=== PATIENT | female | born 1970 | race Caucasian/White ===

== ENCOUNTER 2024-11-03 20:59 | Inpatient (IN) ==
--- NOTE | 2024-11-03 21:13 | Emergency Department Note ---
Impression & Plan Dizziness, Anterior cervical adenopathy, Acute streptococcal pharyngitis, Leukocytosis, Prolonged QT interval, Hypomagnesemia ED Provider Note NAME: JODI PADRON AGE: 54 SEX: F : 1970 ARRIVES VIA: Walk-In INFORMANT: Patient, ED PROVIDER(S): Tommie Jiménez MD CHIEF COMPLAINT: Near syncope MEDICAL DECISION MAKING: Patient presents with the above. IV was established and blood work was obtained. Patient ordered 1500 of IV fluids along with IV Toradol 10 mg. BioFire and strep test obtained along with the EKG and chest x-ray. Upon reassessment patient had mild improvement in symptoms. Patient strep positive. The patient white count of 35,000. Given the patient's significant white blood cell count to believe the patient would benefit from admission for further evaluation. Mild transaminitis with an ALT of 91 and magnesium is low at 1.1. The patient was ordered 2 g over an hour for replacement of magnesium. Hyponatremia noted at 133. Patient's BioFire was positive for coronavirus 2 29E. The patient's chest x-ray by my read does not show obvious pneumonia or pneumothorax. Patient was complaining of muscle spasms and she was ordered for home Skelaxin. I did speak with the on-call hospitalist service Dr. Victor the patient was admitted to medicine service. Discussion w/ other healthcare providers: Dr. Victor inpatient medicine service Prior /Outside records reviewed: none Differential diagnosis: Pharyngitis, tonsillitis, mononucleosis, CAREER SERVICES DIRECTOR, RPA, otitis, pneumonia, sinusitis, lymphadenitis, Fili's, odontogenic vasovagal event, dehydration, infection, hypoglycemia, electrolyte abnormalities, arrhythmia, pulmonary embolism, seizure among others were considered. Diagnostics, as interpreted by me: ECG: Sinus tachycardia, rate of 136, normal VT and QRS, QTc long, normal axis. No ST elevations. Cardiac monitoring: An order was placed for continuous cardiac monitoring. The monitor shows a rate of 136 with tachycardic and regular rhythm. Patient was placed on pulse oximetry Medical decision rules: None Imaging studies: I informally interpreted the patient's chest x-ray does not show obvious pneumonia or pneumothorax with formal report to follow. HPI: Patient presents due to concern for dizziness lightheadedness with the began earlier today. The patient states that she has not felt that well for about the last month seem to worsen just in the last 1 to 2 days. The patient reports that she showed up for work today after having a headache and fever at home with a Tmax of 101 after taking 2 Tylenol. The patient states that during initial huddle she thought as though she was going to vagal and pass out so she did go and sit down for a moment and then she went back to take report for patient care when she had a recurrence of symptoms. The patient states that she sat down and checked her blood pressure and was getting 60s over 40s had somebody else check her blood pressure which was in the 80s. The patient thus presented here for further evaluation treatment. Patient reports that she has had some sore throat and feeling as though her lymph nodes in her anterior neck are swollen. Patient does work as a nurse here in the hospital. No recent travel. Patient denies any abdominal pain. She did have 1 episode of vomiting after her presyncopal symptoms but did never actually pass out. PAST MEDICAL HISTORY: See Below PAST SURGICAL HISTORY: See Below SOCIAL HISTORY: See Below HOME MEDICATIONS: See Below ALLERGIES: See Below VITALS: See Below PHYSICAL EXAMINATION: GENERAL: NAD, non-toxic. EYE EXAM: Normal conjunctiva. PERRL, no anisocoria and EOM's grossly intact w/o pain. OROPHARYNX: Moist mucus membranes, grossly normal dentition. NECK: Trachea midline, no stridor. Supple, no nuchal rigidity, no adenopathy, non-tender. No signs of meningismus. FROM of the neck with good chin to chest and neck extension. LUNGS: Clear to auscultation. Normal chest wall mechanics. HEART: NSR, no MRG. ABDOMEN: Abdomen soft, non-tender, no masses, no rebound or guarding. BACK: No CVA TTP. SKIN: No rashes and no bruising. UPPER EXTREMITIES: Upper extremities are grossly normal. LOWER EXTREMITIES: Grossly normal, no edema. NEURO EXAM: A&O x3, cranial nerves II-XII grossly intact, normal speech, moves all 4 extremities. Past Med/Surg History Problem List (Updated 11/03/24 @ 23:35 by Tommie Jiménez MD) Hypomagnesemia (Acute) Prolonged QT interval (Acute) Leukocytosis (Acute) Acute streptococcal pharyngitis (Acute) Anterior cervical adenopathy (Acute) Dizziness (Acute) Social History Smoking Status: Never smoker Preferred Language: Puerto Rican Feels Safe at Home: Yes Allergies Allergies Allergy/AdvReac Type Severity Reaction Status Date / Time No Known Allergies Allergy Verified 11/03/24 22:04 Home Meds Home Medications Medication Instructions Recorded Confirmed fluticasone propionate 50 2 spray intranasal DAILY PRN 11/03/24 11/03/24 mcg/actuation nasal Congestion spray,suspension (Flonase Allergy Relief) loratadine 10 mg tablet (Claritin) 10 mg PO QPM 11/03/24 11/03/24 metaxalone 800 mg tablet 800 mg PO TID PRN Muscle Spasm 11/03/24 11/03/24 montelukast 10 mg tablet 10 mg PO PM 11/03/24 11/03/24 omeprazole 20 mg tablet,delayed 20 mg PO QPM 11/03/24 11/03/24 release Results & Data (ED) Vital Signs Vital Signs - 24 hr 11/03/24 21:03 11/03/24 21:38 11/03/24 22:28 Temperature 36.5 C Temperature Source Temporal Artery Scan Pulse Rate 136 H Pulse Rate [Apical] 122 H Pulse Rhythm [Apical] Regular Respiratory Rate 18 20 Respiratory Effort / Characteristics Non-Labored Spontaneous Respiratory Depth Normal Normal Respiratory Pattern Regular Blood Pressure 125/85 Blood Pressure [Left Arm] 127/78 Blood Pressure Mean 98 Blood Pressure Mean [Left Arm] 94 Blood Pressure Position [Left Arm] Semi-fowlers Pulse Oximetry 96 97 97 Oxygen Delivery Method Room Air Room Air Sepsis Recent Fever Within 48 Hours No Sepsis New/Unexplained Change in Mental Status No Sepsis Action Taken by Nursing No Action Required Laboratory Data 11/03/24 21:42 11/03/24 21:42 Lab Results 11/03/24 11/03/24 Range/Units 21:08 21:42 WBC 35.16 H* (4.8-10.8) K/ul RBC 4.49 (4.20-5.40) M/uL Hgb 13.7 (12.0-16.0) g/dl Hct 40.2 (37.0-47.0) % MCV 89.5 (80.0-100.0) fL MCH 30.5 (25.0-34.0) pg MCHC 34.1 (32.0-36.0) g/dL RDW Std Deviation 45.1 (36.4-46.3) fL RDW Coeff of Jameel 13.9 (11.5-14.5) % Plt Count 307 (130-400) K/uL MPV 9.6 (9.4-12.4) fL Immature Gran % (Auto) 7.0 % Neut % (Auto) 82.8 % Lymph % (Auto) 3.0 % [place] % (Auto) 7.0 % Eos % (Auto) 0.1 % Baso % (Auto) 0.1 % Neut # (Auto) 29.10 H (1.40-6.50) K/uL Lymph # (Auto) 1.07 L (1.20-3.40) K/uL [place] # (Auto) 2.46 H (0.11-0.59) K/uL Eos # (Auto) 0.03 (0.00-0.50) K/uL Baso # (Auto) 0.05 (0.00-0.20) K/uL Immature Gran # (Auto) 2.45 H (0.01-0.20) K/uL Toxic Vacuolation 1+ Dohle Bodies 1+ PT 11.9 (9.0-12.0) Seconds INR 1.1 (0.9-1.1) APTT 30 (21-31) Seconds PTT Ratio 1.1 Sodium 133 L (136-145) mmol/L Potassium 3.6 (3.5-5.1) mmol/L Chloride 97 L (98-107) mmol/L Carbon Dioxide 23 (21-32) mmol/L Anion Gap 13 H (3-11) BUN 8 (6-23) mg/dl Creatinine 1.15 (0.6-1.2) mg/dl Est Cr Clr Drug Dosing 48.1 ml/min eGFR 56.96 BUN/Creatinine Ratio 7.0 L (10-20) Glucose 114 H (70-99(Fasting)) mg/dl Calcium 9.6 (8.6-10.3) mg/dl Magnesium 1.1 L (1.7-2.4) mg/dl Total Bilirubin 1.3 H (0.2-1.0) mg/dl AST 39 (13-39) U/L ALT 91 H (7-52) U/L Alkaline Phosphatase 179 H (34-104) U/L Troponin I High Sens 3.1 (0-14) pg/ml Total Protein 7.9 (6.0-8.3) gm/dl Albumin 4.2 (3.4-5.0) gm/dl Globulin 3.7 (2.5-4.0) gm/dl Albumin/Globulin Ratio 1.1 (0.9-2) Adenovirus (PCR) Not Detected (NotDetected) B. pertussis DNA (PCR) Not Detected (NotDetected) B.parapertussis DNA PCR Not Detected (NotDetected) C. pneumoniae DNA (PCR) Not Detected (NotDetected) Coronavirus OC43 (PCR) Not Detected (NotDetected) Coronavirus HKU1 (PCR) Not Detected (NotDetected) Coronavirus 229E (PCR) DETECTED A (NotDetected) SARS-CoV-2 (PCR) Not Detected (NotDetected) Coronavirus NL63 (PCR) Not Detected (NotDetected) Human Metapneumovir PCR Not Detected (NotDetected) Influenza Type A (PCR) Not Detected (NotDetected) Influenza Type B (PCR) Not Detected (NotDetected) M. pneumoniae (PCR) Not Detected (NotDetected) Parainfluenza 1 (PCR) Not Detected (NotDetected) Parainfluenza 2 (PCR) Not Detected (NotDetected) Parainfluenza 3 (PCR) Not Detected (NotDetected) Parainfluenza 4 (PCR) Not Detected (NotDetected) RSV (PCR) Not Detected (NotDetected) Entero/Rhino (PCR) Not Detected (NotDetected) Group A Strep (PCR) DETECTED A (NotDetected) Administered Medications Discontinued Medications Sodium Chloride (Nss) 1,000 mls @ 999 mls/hr IV .Q1H1M ONE Stop: 11/03/24 22:19 Last Infusion: 11/03/24 22:36 Dose: Infused Documented By: Admin: 11/03/24 21:35 Dose: 999 mls/hr Documented By: JESS Sodium Chloride (Nss) 500 mls @ 999 mls/hr IV .Q31M ONE Stop: 11/03/24 21:49 Last Admin: 11/03/24 22:31 Dose: 999 mls/hr Documented By: JESS Ampicillin Sodium/Sulbactam Sodium (Unasyn) 3,000 mg in 100 mls @ 200 mls/hr IV NOW STA Stop: 11/03/24 22:54 Last Admin: 11/03/24 22:55 Dose: 200 mls/hr Documented By: DACIA Ketorolac Tromethamine (Ketorolac Tromethamine 15 Mg/Ml Vial) 10 mg IV NOW ONE Stop: 11/03/24 21:20 Last Admin: 11/03/24 21:47 Dose: 10 mg Documented By: JESS Metaxalone (Metaxalone 800 Mg Tablet) 400 mg PO NOW STA Stop: 11/03/24 22:53 Last Admin: 11/03/24 23:05 Dose: 400 mg Documented By: DACIA Discharge Plan Visit Data Chief Complaint: Syncope (Near Syncope) Stated Complaint: NEAR SYNCOPE,SOB,VOMITING ED Provider: Tommie Jiménez Discharge Problem: Dizziness, Anterior cervical adenopathy, Acute streptococcal pharyngitis, Leukocytosis, Prolonged QT interval, Hypomagnesemia Forms Stand Alone Forms: [place] [employer] Prescriptions Prescriptions: No Action montelukast 10 mg Tablet 10 mg PO PM fluticasone propionate [Flonase Allergy Relief] 50 mcg/actuation [place],Suspension 2 spray INTRANASAL DAILY PRN (Reason: Congestion) Rx Instructions: administer into each nostril loratadine [Claritin] 10 mg Tablet 10 mg PO QPM metaxalone 800 mg Tablet 800 mg PO TID PRN (Reason: Muscle Spasm) omeprazole 20 mg Tablet,Delayed Release (Dr/Ec) 20 mg PO QPM Referrals Referrals: PCP,NO [Physician] - Discharge Problem: Leukocytosis Qualifiers: Leukocytosis type: unspecified Qualified Code(s): D72.829 - Elevated white blood cell count, unspecified
[2024-11-03] MEDS: SODIUM CHLORIDE 0.9% 1,000 ML IV ONE ×2 (21:35→23:38)
[2024-11-03] MEDS: KETOROLAC TROMETHAMINE 15 MG/ML VIAL IV ONE (21:47)
[2024-11-03 22:11] LABS: Adenovirus PCR Not Detected (NotDetected); Bordetella parapertussis PCR Not Detected (NotDetected); Bordetella pertussis PCR Not Detected (NotDetected); Chlamydia pneumoniae PCR Not Detected (NotDetected); Coronavirus 229E PCR DETECTED (NotDetected); Coronavirus CoV-2 (COVID19)PCR Not Detected (NotDetected); Coronavirus HKU1 PCR Not Detected (NotDetected); Coronavirus NL63 PCR Not Detected (NotDetected); Coronavirus OC43PCR Not Detected (NotDetected); Human Metapneumovirus PCR Not Detected (NotDetected); Influenza A PCR Not Detected (NotDetected); Influenza B PCR Not Detected (NotDetected); Mycoplasma pneumoniae PCR Not Detected (NotDetected); Parainfluenza Virus 1 PCR Not Detected (NotDetected); Parainfluenza Virus 2 PCR Not Detected (NotDetected); Parainfluenza Virus 3 PCR Not Detected (NotDetected); Parainfluenza Virus 4 PCR Not Detected (NotDetected); Respiratory Syncytial VirusPCR Not Detected (NotDetected); Rhinovirus/Enterovirus PCR Not Detected (NotDetected)
[2024-11-03 22:13] LABS: Albumin Globulin Ratio 1.1 (0.9-2); Albumin Level 4.2 gm/dl (3.4-5.0); Bilirubin,Total 1.3 mg/dl (0.2-1.0); Calcium 9.6 mg/dl (8.6-10.3); Creatinine Clr Calc Pharmacy 48.1 ml/min; Globulin 3.7 gm/dl (2.5-4.0); Magnesium 1.1 mg/dl (1.7-2.4); Potassium 3.6 mmol/L (3.5-5.1); Total Protein 7.9 gm/dl (6.0-8.3)
[2024-11-03 22:20] LABS: Basophils # (auto) 0.05 K/uL (0.00-0.20); Basophils % (auto) 0.1 %; Dohle Bodies 1+; Eosinophils # (auto) 0.03 K/uL (0.00-0.50); Eosinophils % (auto) 0.1 %; Hematocrit (blood only) 40.2 % (37.0-47.0); Hemoglobin 13.7 g/dl (12.0-16.0); Immature Granulocytes # (auto) 2.45 K/uL (0.01-0.20); Lymphocytes # (auto) 1.07 K/uL (1.20-3.40); Mean Corpuscular Hemoglobin 30.5 pg (25.0-34.0); Mean Corpuscular Hgb Conc 34.1 g/dL (32.0-36.0); Mean Corpuscular Volume 89.5 fL (80.0-100.0); Mean Platelet Volume 9.6 fL (9.4-12.4); Monocytes # (auto) 2.46 K/uL (0.11-0.59); Neutrophils % (auto) 82.8 %; Platelet Count 307 K/uL (130-400); RDW Coefficient of Variation 13.9 % (11.5-14.5); RDW Standard Deviation 45.1 fL (36.4-46.3); Red Blood Count 4.49 M/uL (4.20-5.40); Toxic Vacuolation 1+; Troponin I High Sensitivity 3.1 pg/ml (0-14); White Blood Count 35.16 K/ul (4.8-10.8)
[2024-11-03] MEDS: SODIUM CHLORIDE 0.9% 500 ML IV ONE (22:31)
[2024-11-03 22:44] LABS: INR 1.1 (0.9-1.1); Partial Thromboplastin Ratio 1.1; Partial Thromboplastin Time 30 Seconds (21-31); Prothrombin Time 11.9 Seconds (9.0-12.0)
[2024-11-03] MEDS: AMPICILLIN/SULBACTAM SOD 3,000 MG/100 ML BAG IV STA (22:55)
[2024-11-03] MEDS: METAXALONE 800 MG TABLET PO STA (23:05)
[2024-11-03] MEDS: MAGNESIUM SULFATE / D5W 1 GM/100 ML BAG IV SCH (23:39)
--- NOTE | 2024-11-04 00:02 | History & Physical Report ---
Date of Service November 03, 2024 Assessment & Plan (1) Sepsis: Plan: 54-year-old female with past medical history significant for allergies, GERD presents with fever, sore throat and runny nose and near syncope. Patient states she has cough for last month and attributes it from allergies. Since last Friday she started having sore throat. And since Friday she was having fevers. Having bodyaches. She is taking Tylenol and ibuprofen at home. 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 It happened again. And when she stood up and checked her blood pressure systolic blood pressure was in 60s. She checked her blood pressures sitting and systolic blood pressure was in 80s. Patient has had a history of vasovagal episodes. She came to the ER. And in ER she was tachycardic. Blood pressure is okay. Currently afebrile. WBC 35. Magnesium 1.1. Total bili 1.3. ALT 91. Alkaline phos 117. Respiratory bio fire came back positive for coronavirus 229 E and also was group B strep positive. Says when she had episode of near syncope she felt tunnel vision. Has some fullness in the ears. Has runny nose. Denies any chest pain. Feels soreness in the lungs. Denies shortness of breath. Had 3 episodes of vomiting since today evening. Denies abdominal pain. No diarrhea. Micturating okay. Denies any rash. Sepsis Meets criteria for sepsis with tachycardia, pneumonia, leukocytosis Aggressive fluids Respiratory panel positive for coronavirus 229 E and group A strep Received ampicillin in the ER Chest x-ray shows cavitary lesion in the left midline. Possible pneumonia versus mass lesions Will get CT chest Will place empirically on Zosyn and doxycycline Consult pulmonary in a.m. for further recommendation Close monitoring telemetry Near syncope Possible from sepsis and tachycardia Troponin okay Will follow repeat EKG and telemetry will follow echo Prolonged QTc Avoid QT prolonging drugs Replacing magnesium Follow repeat EKG Hypomagnesia Magnesium 1.1 Replacing Follow repeat labs Leukocytosis WBC 35 Possibly from above Will follow repeat labs Mild transaminitis Total bilirubin 1.3 AST 39 ALT 91 Alkaline phos is 179 Will follow-up repeat LFTs and if worsening will hold Tylenol GERD Continue omeprazole DVT prophylaxis Lovenox Disposition Telemetry Full code. History of Present Illness Chief Complaint: Sepsis Primary Care Provider: NATHALY LORRAINE 54-year-old female with past medical history significant for allergies, GERD presents with fever, sore throat and runny nose and near syncope. Patient states she has cough for last month and attributes it from allergies. Since last Friday she started having sore throat. And since Friday she was having fevers. Having bodyaches. She is taking Tylenol and ibuprofen at home. 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 It happened again. And when she stood up and checked her blood pressure systolic blood pressure was in 60s. She checked her blood pressures sitting and systolic blood pressure was in 80s. Patient has had a history of vasovagal episodes. She came to the ER. And in ER she was tachycardic. Blood pressure is okay. Currently afebrile. WBC 35. Magnesium 1.1. Total bili 1.3. ALT 91. Alkaline phos 117. Respiratory bio fire came back positive for coronavirus 229 E and also was group B strep positive. Says when she had episode of near syncope she felt tunnel vision. Has some fullness in the ears. Has runny nose. Denies any chest pain. Feels soreness in the lungs. Denies shortness of breath. Had 3 episodes of vomiting since today evening. Denies abdominal pain. No diarrhea. Micturating okay. Denies any rash. Past medical history. As mentioned above Past surgical history. . Tubal ligation. [place] tooth surgery. LASEK surgery. Social history. Used to smoke 0.5 pack a day for last 6 years. Says quit smoking a month ago. Drinks alcohol on the weekends. Family history. Father has CHF. CABG. CVA. Mother has hypertension and hyperlipidemia. Allergies Allergy/AdvReac Type Severity Reaction Status Date / Time No Known Allergies Allergy Verified 11/03/24 22:04 Home Medications Medication Instructions Recorded Confirmed Type fluticasone propionate 50 2 spray intranasal DAILY PRN 11/03/24 11/03/24 History mcg/actuation nasal Congestion spray,suspension (Flonase Allergy Relief) loratadine 10 mg tablet (Claritin) 10 mg PO QPM 11/03/24 11/03/24 History metaxalone 800 mg tablet 800 mg PO TID PRN Muscle Spasm 11/03/24 11/03/24 History montelukast 10 mg tablet 10 mg PO PM 11/03/24 11/03/24 History omeprazole 20 mg tablet,delayed 20 mg PO QPM 11/03/24 11/03/24 History release Past Med/Surg History Problem List (Updated 11/04/24 @ 03:28 by Background Lucio) Sepsis Hypomagnesemia (Acute) Prolonged QT interval (Acute) Leukocytosis (Acute) Acute streptococcal pharyngitis (Acute) Anterior cervical adenopathy (Acute) Dizziness (Acute) Social History (Updated 11/04/24 @ 01:33 by Cynthia Starkey RN) Smoking Status: Former smoker Tobacco Type: Cigarettes Smoking End Date: 1 MONTH AGO; Second Hand Exposure: No; Do You Dip or Chew Tobacco: No; Tobacco Cessation Education Requested by Patient: No Hx Alcohol Use: No Hx Substance Use: No Preferred Language: Syrian Communication Ability: Effective Certified Pesticide Applicator Required: No Beliefs That Will Affect Care: None Current Living Situation: Spouse Other Information That Helps Us Care for You: No Feels Safe at Home: Yes Safety Concerns: Feels Safe At This Time Review of Systems Review of Systems: All systems reviewed & are unremarkable except as noted in HPI & below Physical Exam Physical Exam: General- Not in acute distress Head- atraumatic Eyes- PERRL. ENT- erythema in pharynx region Neck- supple, no JVD. Lungs- clear to auscultation no wheezing or crackles Heart- regular rhythm; tachycardia, no murmur, no gallop. Abdomen- normal bowel sounds, soft, nontender, no distension Extremities- no pretibial edema, no erythema seen Neuro- alert, oriented ; PERRL, no facial palsy; no dysarthria; moves extremities Results & Data Results & Data Vital Signs (Past 12 Hours) Vital Signs Temp Pulse Pulse Resp BP BP Pulse Ox 11/03/24 22:28 122 H 20 127/78 97 11/03/24 21:38 97 11/03/24 21:03 36.5 C 136 H 18 125/85 96 O2 Del Method 11/03/24 22:28 Room Air 11/03/24 21:38 11/03/24 21:03 Room Air Diagnostic Findings Laboratory Results WBC 35.16 K/ul (4.8-10.8) H* 11/03/24 21:42 RBC 4.49 M/uL (4.20-5.40) 11/03/24 21:42 Hgb 13.7 g/dl (12.0-16.0) 11/03/24 21:42 Hct 40.2 % (37.0-47.0) 11/03/24 21:42 MCV 89.5 fL (80.0-100.0) 11/03/24 21:42 MCH 30.5 pg (25.0-34.0) 11/03/24 21:42 MCHC 34.1 g/dL (32.0-36.0) 11/03/24 21: RDW Std Deviation 45.1 fL (36.4-46.3) 11/03/24 21: RDW Coeff of Jameel 13.9 % (11.5-14.5) 11/03/24 21:42 Plt Count 307 K/uL (130-400) 11/03/24 21:42 MPV 9.6 fL (9.4-12.4) 11/03/24 21:42 Immature Gran % (Auto) 7.0 % 11/03/24 21:42 Neut % (Auto) 82.8 % 11/03/24 21:42 Lymph % (Auto) 3.0 % 11/03/24 21:42 [place] % (Auto) 7.0 % 11/03/24 21:42 Eos % (Auto) 0.1 % 11/03/24 21:42 Baso % (Auto) 0.1 % 11/03/24 21:42 Neut # (Auto) 29.10 K/uL (1.40-6.50) H 11/03/24 21:42 Lymph # (Auto) 1.07 K/uL (1.20-3.40) L 11/03/24 21:42 [place] # (Auto) 2.46 K/uL (0.11-0.59) H 11/03/24 21:42 Eos # (Auto) 0.03 K/uL (0.00-0.50) 11/03/24 21:42 Baso # (Auto) 0.05 K/uL (0.00-0.20) 11/03/24 21:42 Immature Gran # (Auto) 2.45 K/uL (0.01-0.20) H 11/03/24 21:42 Toxic Vacuolation 1+ 11/03/24 21:42 Dohle Bodies 1+ 11/03/24 21:42 PT 11.9 Seconds (9.0-12.0) 11/03/24 21:42 INR 1.1 (0.9-1.1) 11/03/24 21:42 APTT 30 Seconds (21-31) 11/03/24 21:42 PTT Ratio 1.1 11/03/24 21:42 Sodium 133 mmol/L (136-145) L 11/03/24 21:42 Potassium 3.6 mmol/L (3.5-5.1) 11/03/24 21:42 Chloride 97 mmol/L (98-107) L 11/03/24 21:42 Carbon Dioxide 23 mmol/L (21-32) 11/03/24 21:42 Anion Gap 13 (3-11) H 11/03/24 21:42 BUN 8 mg/dl (6-23) 11/03/24 21:42 Creatinine 1.15 mg/dl (0.6-1.2) 11/03/24 21:42 Est Cr Clr Drug Dosing 48.1 ml/min 11/03/24 21:42 eGFR 56.96 11/03/24 21:42 BUN/Creatinine Ratio 7.0 (10-20) L 11/03/24 21:42 Glucose 114 mg/dl (70-99(Fasting)) H 11/03/24 21:42 Calcium 9.6 mg/dl (8.6-10.3) 11/03/24 21:42 Magnesium 1.1 mg/dl (1.7-2.4) L 11/03/24 21:42 Total Bilirubin 1.3 mg/dl (0.2-1.0) H 11/03/24 21:42 AST 39 U/L (13-39) 11/03/24 21:42 ALT 91 U/L (7-52) H 11/03/24 21:42 Alkaline Phosphatase 179 U/L (34-104) H 11/03/24 21:42 Troponin I High Sens 3.1 pg/ml (0-14) 11/03/24 21:42 Total Protein 7.9 gm/dl (6.0-8.3) 11/03/24 21:42 Albumin 4.2 gm/dl (3.4-5.0) 11/03/24 21:42 Globulin 3.7 gm/dl (2.5-4.0) 11/03/24 21:42 Albumin/Globulin Ratio 1.1 (0.9-2) 11/03/24 21:42 Adenovirus (PCR) Not Detected (NotDetected) 11/03/24 21:08 B. pertussis DNA (PCR) Not Detected (NotDetected) 11/03/24 21:08 B.parapertussis DNA PCR Not Detected (NotDetected) 11/03/24 21:08 C. pneumoniae DNA (PCR) Not Detected (NotDetected) 11/03/24 21:08 Coronavirus OC43 (PCR) Not Detected (NotDetected) 11/03/24 21:08 Coronavirus HKU1 (PCR) Not Detected (NotDetected) 11/03/24 21:08 Coronavirus 229E (PCR) DETECTED (NotDetected) A 11/03/24 21:08 SARS-CoV-2 (PCR) Not Detected (NotDetected) 11/03/24 21:08 Coronavirus NL63 (PCR) Not Detected (NotDetected) 11/03/24 21:08 Human Metapneumovir PCR Not Detected (NotDetected) 11/03/24 21:08 Influenza Type A (PCR) Not Detected (NotDetected) 11/03/24 21:08 Influenza Type B (PCR) Not Detected (NotDetected) 11/03/24 21:08 M. pneumoniae (PCR) Not Detected (NotDetected) 11/03/24 21:08 Parainfluenza 1 (PCR) Not Detected (NotDetected) 11/03/24 21:08 Parainfluenza 2 (PCR) Not Detected (NotDetected) 11/03/24 21:08 Parainfluenza 3 (PCR) Not Detected (NotDetected) 11/03/24 21:08 Parainfluenza 4 (PCR) Not Detected (NotDetected) 11/03/24 21:08 RSV (PCR) Not Detected (NotDetected) 11/03/24 21:08 Entero/Rhino (PCR) Not Detected (NotDetected) 11/03/24 21:08 Group A Strep (PCR) DETECTED (NotDetected) A 11/03/24 21:42 Impressions Chest X-Ray 11/03/24 21:20 Exam(s): XR CXR 1 VIEW EXAM: XR Chest, 1 View CLINICAL HISTORY: Reason for exam: cough, fever. TECHNIQUE: Frontal view of the chest. COMPARISON: No relevant prior studies available. FINDINGS: Lungs: There is an approximately 4.3 cm density in the lateral aspect of the left midline, possibly with central cavitation. There is also increased density in the left suprahilar region. Consider pneumonia versus mass lesions. Pleural space: Unremarkable. No pneumothorax. Heart: Unremarkable. No cardiomegaly. Mediastinum: Unremarkable. Normal mediastinal contour. Bones/joints: Unremarkable. No acute fracture. Upper abdomen: Unremarkable as visualized. No pneumoperitoneum under the diaphragm. IMPRESSION: There is an approximately 4.3 cm density in the lateral aspect of the left midline, possibly with central cavitation. There is also increased density in the left suprahilar region. Consider pneumonia versus mass lesions. Electronically signed by: Hernando Sauceda MD 11/04/24 00:05 AM ECG Additional Comments: ECG. Sinus tachycardia rate of 136. QTc 559. Code Status & VTE Plan VTE Prophylaxis Plan VTE Prophylaxis will be ordered: Yes
--- NOTE | 2024-11-04 00:06 | XRay Report ---
Exam(s): XR CXR 1 VIEW EXAM: XR Chest, 1 View CLINICAL HISTORY: Reason for exam: cough, fever. TECHNIQUE: Frontal view of the chest. COMPARISON: No relevant prior studies available. FINDINGS: Lungs: There is an approximately 4.3 cm density in the lateral aspect of the left midline, possibly with central cavitation. There is also increased density in the left suprahilar region. Consider pneumonia versus mass lesions. Pleural space: Unremarkable. No pneumothorax. Heart: Unremarkable. No cardiomegaly. Mediastinum: Unremarkable. Normal mediastinal contour. Bones/joints: Unremarkable. No acute fracture. Upper abdomen: Unremarkable as visualized. No pneumoperitoneum under the diaphragm. IMPRESSION: There is an approximately 4.3 cm density in the lateral aspect of the left midline, possibly with central cavitation. There is also increased density in the left suprahilar region. Consider pneumonia versus mass lesions. Electronically signed by: Hernando Sauceda MD 11/04/24 00:05 AM
[2024-11-04] MEDS: BENZONATATE 100 MG CAPSULE PO ONE (00:27)
[2024-11-04] MEDS: ACETAMINOPHEN 1,000 MG/100 ML VIAL IV STA (01:14)
[2024-11-04] MEDS ORDERED: PIPERACILLIN/TAZOBACTAM 4.5 GM/100 ML BAG IV SCH (01:15)
[2024-11-04] MEDS: DOXYCYCLINE HYCLATE 100 MG in DEXTROSE 5% MINI-B 100 ML IV STA (01:35)
[2024-11-04] MEDS: HYDROcodone/HOMATROPINE SYRUP 5MG/1.5MG 5ML UDP PO STA (03:32)
[2024-11-04] MEDS: KETOROLAC TROMETHAMINE 15 MG/ML VIAL IV ONE (04:06)
[2024-11-04] MEDS: SODIUM CHLORIDE 0.9% 1,000 ML IV SCH (04:11)
[2024-11-04] MEDS: MAGNESIUM SULFATE / D5W 1 GM/100 ML BAG IV ONE (04:15)
[2024-11-04] MEDS: OPTIRAY 320 125ml IV ONE (04:37)
[2024-11-04] MEDS: guaiFENesin SUGAR FREE 100 MG/5 ML UDC PO PRN (04:46)
[2024-11-04] MEDS: PIPERACILLIN/TAZOBACTAM 4.5 GM/100 ML BAG IV SCH (04:51)
[2024-11-04] MEDS: SODIUM CHLORIDE 0.9% 500 ML IV ONE (04:58)
[2024-11-04] MEDS: METOPROLOL TARTRATE 1 MG/ML VIAL IV STA (05:05)
--- NOTE | 2024-11-04 05:52 | CT Scan Report ---
EXAM: CT angio chest PE protocol CLINICAL HISTORY: PE TECHNIQUE: Contiguous axial images were obtained from the neck base through the upper abdomen following intravenous administration of iodinated contrast material. Angiographic images were processed, 3D MIP images were acquired for interpretation. If IV contrast material had not been administered, the likelihood of detecting abnormalities relevant to the patient's condition would have been substantially decreased. Coronal and sagittal 3-D MIPs were likewise performed and indicated to increase the sensitivity of detectin diffuse clinically relevant pathology. CT scan was performed according to ALARA (as low as reasonable achievable). COMPARISON: none. FINDINGS: Bilateral Lung Reese: wedge shaped area of consolidation with surrounding ill-defined GGO's, internal cavity and air bronchogram noted involving left upper lobe Patchy and dense areas of consolidation noted involving left lower lobe with cavitations seen within consolidation of superior basal segment. Scattered nodular opacities within basal segments of left lower lobe, right middle lobe and left lingula with few of the nodules showing tree in bud appearance. Patchy areas of peribronchovascular consolidation seen within basal prostatic superior basal segment and medial and posterior basal segments of right lower lobe. Subsegmental atelectatic changes noted in bilateral lower lobes. minimal left pleural effusion Scattered 2-3 mm calcified nodules in left lower lobe and bilateral upper lobes. The central airways are patent. Cardia and great vessels: dilated main pulmonary artery with a diameter of approximately 33 mm. adequate contrast bolus without evidence of pulmonary embolism. The heart and aorta are of normal size and configuration. There are no appreciable coronary artery and aortic atherosclerotic calcifications. No pericardial effusion is identified. The thyroid is unremarkable. No mediastinal, hilar, or axillary lymphadenopathy is noted. No suspicious lytic or sclerotic osseous lesions are identified. IMPRESSION: No evidence of pulmonary embolism . Multiple areas of consolidation with few of them showing internal cavitations, predominantly involving left upper and bilateral lower lobes Scattered nodular opacities in right middle and bilateral lower lobes. - Features are suggestive of infective etiology (bacterial and fungal) Dilated main pulmonary artery- suggest 2D echo correlation. Electronically signed by Edgar Diego 11-04-2024 05:52 AM
[2024-11-04] MEDS: BUDESONIDE 0.5 MG/2 ML VIAL (PULMICORT) NEB SCH (07:19)
[2024-11-04] MEDS: KETOROLAC TROMETHAMINE 15 MG/ML VIAL ONE (07:41)
[2024-11-04 07:57] LABS: Hemoglobin 11.7 g/dl (12.0-16.0); Mean Corpuscular Hemoglobin 30.4 pg (25.0-34.0); Mean Corpuscular Hgb Conc 34.4 g/dL (32.0-36.0); Mean Corpuscular Volume 88.3 fL (80.0-100.0); Mean Platelet Volume 9.7 fL (9.4-12.4); Platelet Count 268 K/uL (130-400); RDW Coefficient of Variation 13.8 % (11.5-14.5); RDW Standard Deviation 44.9 fL (36.4-46.3); Red Blood Count 3.85 M/uL (4.20-5.40)
[2024-11-04] MEDS: ENOXAPARIN INJ 40 MG/0.4 ML SYR SQ SCH (08:10)
[2024-11-04] MEDS: BENZONATATE 100 MG CAPSULE PO SCH (08:11)
[2024-11-04] MEDS: DOXYCYCLINE HYCLATE 100 MG in DEXTROSE 5% MINI-B 100 ML IV SCH (08:11)
[2024-11-04] MEDS: METAXALONE 800 MG TABLET PO PRN (08:11)
[2024-11-04 08:17] LABS: Albumin Level 3.2 gm/dl (3.4-5.0); BUN Creatinine Ratio 8.3 (10-20); Bilirubin Direct 0.8 mg/dl (0-0.2); Bilirubin,Total 1.4 mg/dl (0.2-1.0); Creatinine Clr Calc Pharmacy 79.3 ml/min; Magnesium 1.9 mg/dl (1.7-2.4); Phosphorus 2.9 mg/dl (2.5-4.9); Potassium 3.4 mmol/L (3.5-5.1); Total Protein 6.1 gm/dl (6.0-8.3); Troponin I High Sensitivity 10.3 pg/ml (0-14)
[2024-11-04 08:27] LABS: Basophils # (auto) 0.16 K/uL (0.00-0.20); Basophils % (auto) 0.6 %; Eosinophils # (auto) 0.05 K/uL (0.00-0.50); Eosinophils % (auto) 0.2 %; Immature Granulocytes # (auto) 0.29 K/uL (0.01-0.20); Immature Granulocytes % (auto) 1.1 %; Lymphocytes # (auto) 1.19 K/uL (1.20-3.40); Lymphocytes % (auto) 4.7 %; Monocytes # (auto) 1.13 K/uL (0.11-0.59); Monocytes % (auto) 4.5 %; Neutrophils # (auto) 22.57 K/uL (1.40-6.50); Neutrophils % (auto) 88.9 %; Polychromasia 1+; Toxic Granulation 1+; Toxic Vacuolation 1+; White Blood Count 25.39 K/ul (4.8-10.8)
--- NOTE | 2024-11-04 09:44 | Hospitalist Progress Note ---
Date of Service November 04, 2024 Assessment & Plan (1) Sepsis: Plan: 54-year-old female with past medical history significant for allergies, GERD presents with fever, sore throat and runny nose and near syncope. 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 Lab notable for WBC 35. Magnesium 1.1. Total bili 1.3. ALT 91. Alkaline phos 117. Respiratory bio fire came back positive for coronavirus 229 E and group B strep positive. S Sepsis Streptococcal pharyngitis Cavitary lung lesion Chest x-ray shows cavitary lesion in the left midline. Possible pneumonia versus mass lesions CT chest noted multiple area of consolidation with few showing internal cavitation CT neck noted mild tonsilitis. No peritonsilar abscess, mild cervical lymphadenopathy, Acute paranasal sinusitis Pulm changed antibiotics to unasyn and doxy ID c/s Continue IVF Near syncope Likely from sepsis and tachycardia Troponin was normal Echo reviewed. Unremarkable Prolonged QTc Avoid QT prolonging drugs Hypokalemia Replete and monitor Mild transaminitis On admission, Total bilirubin 1.3, AST 39, ALT 91, Alkaline phos is 179 Likely due to sepsis Monitor LFT GERD Continue omeprazole DVT prophylaxis Lovenox Full code. I spent a total of 50 minutes coordinating, documenting and providing care for this patient excluding time spent in performance of separately billed services Admission and Anticipated Discharge Date Admission Date: November 03, 2024 Subjective Patient seen and examined Reports cough, sore throat, voice change, congestion Reports pain on sides from coughing Denied vomiting, abd pain, diarrhea Physical Exam Constitutional: + ill appearing Eyes: PERRL, conjunctivae normal, anicteric sclerae Neck: Trachea midline Respiratory: normal respiratory effort, lungs clear to auscultation Cardiovascular: Rate/Rhythm: + tachycardic S1 S2 Gastrointestinal (Abdomen): normal bowel sounds, soft, nontender, no hepatosplenomegaly Musculoskeletal: no cyanosis or clubbing, extremities motor strength 5/5 Neurologic: PERRL, EOMI, accommodation nl, no face palsy, no dysarthria Psychiatric: A+Ox3, euthymic affect Results & Data Results & Data Vital Signs (Past 12 Hours) Vital Signs Temp Pulse Pulse Resp BP BP Pulse Ox 04/10/25 08:38 99 11/04/24 08:38 83 L 11/04/24 08:26 11/04/24 08:03 37.1 C 125 H 18 94/63 L 91 11/04/24 07:21 124 H 19 91 11/04/24 03:28 37.1 C 136 H 16 103/69 95 11/04/24 03:15 11/04/24 03:15 36.8 C 126 H 22 96/63 L 95 11/04/24 03:06 11/04/24 02:51 134 H 31 H 98 11/04/24 02:42 133 H 25 H 11/04/24 02:36 137 H 21 11/04/24 02:15 139 H 23 11/04/24 01:57 144 H 39 H 11/04/24 01:30 145 H 19 11/04/24 01:24 148 H 46 H 11/04/24 01:06 146 H 36 H 11/04/24 01:00 121/60 11/04/24 01:00 121/60 11/04/24 01:00 38.7 C H 11/04/24 00:57 149 H 28 H 11/04/24 00:30 144 H 47 H 11/04/24 00:21 145 H 29 H 11/04/24 00:12 150 H 25 H 11/04/24 00:03 142 H 40 H 11/04/24 00:00 120/76 11/04/24 00:00 120/76 11/03/24 23:57 146 H 34 H 11/03/24 23:54 158 H 30 H 11/03/24 23:39 139 H 28 H 97 11/03/24 23:21 148 H 22 98 11/03/24 23:12 142 H 23 11/03/24 23:08 123/77 11/03/24 23:08 123/77 11/03/24 22:57 141 H 25 H 97 11/03/24 22:51 133 H 30 H 97 11/03/24 22:36 126 H 32 H 96 11/03/24 22:28 122 H 20 127/78 97 11/03/24 22:24 127/78 11/03/24 22:09 120 H 28 H 95 11/03/24 22:00 124 H 25 H 97 11/03/24 21:54 120 H 27 H 96 O2 Del Method FiO2 11/04/24 08:38 Nasal Cannula 11/04/24 08:38 Room Air 11/04/24 08:26 Room Air 11/04/24 08:03 Room Air 11/04/24 07:21 Room Air 21 11/04/24 03:28 Room Air 11/04/24 03:15 Room Air 11/04/24 03:15 Room Air 11/04/24 03:06 Room Air 11/04/24 02:51 11/04/24 02:42 11/04/24 02:36 11/04/24 02:15 11/04/24 01:57 11/04/24 01:30 11/04/24 01:24 11/04/24 01:06 11/04/24 01:00 11/04/24 01:00 11/04/24 01:00 11/04/24 00:57 11/04/24 00:30 11/04/24 00:21 11/04/24 00:12 11/04/24 00:03 11/04/24 00:00 11/04/24 00:00 11/03/24 23:57 11/03/24 23:54 11/03/24 23:39 11/03/24 23:21 11/03/24 23:12 11/03/24 23:08 11/03/24 23:08 11/03/24 22:57 11/03/24 22:51 11/03/24 22:36 11/03/24 22:28 Room Air 11/03/24 22:24 11/03/24 22:09 11/03/24 22:00 11/03/24 21:54 Laboratory Results Abnormal lab results 11/03/24 11/03/24 11/04/24 Range/Units 21:08 21:42 07:27 WBC 35.16 H* 25.39 H (4.8-10.8) K/ul RBC 3.85 L (4.20-5.40) M/uL Hgb 11.7 L (12.0-16.0) g/dl Hct 34.0 L (37.0-47.0) % Neut # (Auto) 29.10 H 22.57 H (1.40-6.50) K/uL Lymph # (Auto) 1.07 L 1.19 L (1.20-3.40) K/uL [place] # (Auto) 2.46 H 1.13 H (0.11-0.59) K/uL Immature Gran # (Auto) 2.45 H 0.29 H (0.01-0.20) K/uL Sodium 133 L 132 L (136-145) mmol/L Potassium 3.4 L (3.5-5.1) mmol/L Chloride 97 L (98-107) mmol/L Anion Gap 13 H (3-11) BUN/Creatinine Ratio 7.0 L 8.3 L (10-20) Glucose 114 H 105 H (70-99(Fasting)) mg/dl Calcium 8.0 L (8.6-10.3) mg/dl Magnesium 1.1 L (1.7-2.4) mg/dl Total Bilirubin 1.3 H 1.4 H (0.2-1.0) mg/dl Direct Bilirubin 0.8 H (0-0.2) mg/dl ALT 91 H 60 H (7-52) U/L Alkaline Phosphatase 179 H 124 H (34-104) U/L Albumin 3.2 L (3.4-5.0) gm/dl Coronavirus 229E (PCR) DETECTED A (NotDetected) Group A Strep (PCR) DETECTED A (NotDetected)
--- NOTE | 2024-11-04 10:23 | Pulmonary Consultation ---
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 This could represent a lung abscess. Other etiologies such as Lemierre syndrome would also be on the differential given her 1 week history of pharyngitis. Recommendations: 1. Will obtain CT of the neck with and without contrast to evaluate for peritonsillar abscess as well as potential thrombus of the jugular veins. 2. The patient is not at risk for Pseudomonas infection so antipseudomonal antibiotics are not required. She does require anaerobic coverage so we will de-escalate antibiotics to Unasyn. Doxycycline is likely overkill but can be continued for now. 3. Continue oxygen titrated to keep saturations at or above 88%. 4. Patient may require long-term antibiotics. Pulmonary abscess typically requires antibiotics for up to 6 weeks. This may need IV antibiotics but again would hold off until we can determine whether or not the patient has jugular septic thrombophlebitis or not. ID consultation may be beneficial. Would not recommend bronchoscopy currently although if the patient fails to respond, consideration for bronchoscopy with sampling of lower respiratory cultures at that point time may be appropriate 5. Management the patient's other medical issues per primary admitting service. History of Present Illness Attending Physician: Soumya Grimes MD History of Present Illness Asked by hospitalist to assist in evaluation management this patient with abnormal CT scan. History is obtained from discussion with the patient as well as review of the electronic medical record. 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 She became syncopal with positive orthostatics and was sent to the emergency room where she was found to be tachycardic and hypotensive. Chest x-ray demonstrated multifocal airspace opacities and CT scan confirmed some cavitary component to these airspace opacities. Patient was initiated on antibiotics in the form of Zosyn and doxycycline and admitted to the hospitalist service. Pulmonary was consulted for additional evaluation and management. Patient states that she has been feeling generally ill for about a month. This has been on and off with flulike illness. Over the last week she has had severe pharyngitis to the point that she is no longer able to eat solid food. She is only able to tolerate liquids currently. She lives at home with her and grandchildren. Unclear if any other family members are ill at home. No pets at home. She denies any skin rashes or lesions. No arthralgias. She is feeling somewhat better after initiation of IV fluids and appropriate antimicrobial therapy. She never had a strep evaluation performed. PCR nasal swab was positive for strep and a coronavirus, not COVID-19. Allergies Allergy/AdvReac Type Severity Reaction Status Date / Time No Known Allergies Allergy Verified 11/03/24 22:04 Home Medications Medication Instructions Recorded Confirmed Type fluticasone propionate 50 2 spray intranasal DAILY PRN 11/03/24 11/03/24 History mcg/actuation nasal Congestion spray,suspension (Flonase Allergy Relief) loratadine 10 mg tablet (Claritin) 10 mg PO QPM 11/03/24 11/03/24 History metaxalone 800 mg tablet 800 mg PO TID PRN Muscle Spasm 11/03/24 11/03/24 History montelukast 10 mg tablet 10 mg PO PM 11/03/24 11/03/24 History omeprazole 20 mg tablet,delayed 20 mg PO QPM 11/03/24 11/03/24 History release Patient History Social History (Updated 11/04/24 @ 01:33 by Cynthia Starkey RN) Smoking Status: Former smoker Tobacco Type: Cigarettes Second Hand Exposure: No; Do You Dip or Chew Tobacco: No; Hx Alcohol Use: No Hx Substance Use: No Preferred Language: Tajik Communication Ability: Effective Etl [employer] Developer Required: No Beliefs That Will Affect Care: None Current Living Situation: Spouse Feels Safe at Home: Yes Review of Systems Review of Systems: Please refer to admission H&P. No additions or deletions Physical Exam Constitutional: WD/WN, vitals as above Neck: trachea midline, no thyromegaly Respiratory: normal respiratory effort, lungs clear to auscultation Cardiovascular: RRR, no murmur, no edema Gastrointestinal (Abdomen): normal bowel sounds, soft, nontender, no hepatosplenomegaly Musculoskeletal: Extremities: extremities normal to inspection Skin: no rashes, warm and dry Neurologic: Nonfocal exam Lymphatic: no cervical lymphadenopathy Results & Data Results & Data Vital Signs (Past 12 Hours) Vital Signs Temp Pulse Pulse Resp BP BP Pulse Ox 11/04/24 10:13 122 H 11/04/24 08:38 99 11/04/24 08:38 83 L 11/04/24 08:26 11/04/24 08:03 37.1 C 125 H 18 94/63 L 91 11/04/24 07:21 124 H 19 91 11/04/24 03:28 37.1 C 136 H 16 103/69 95 11/04/24 03:15 11/04/24 03:15 36.8 C 126 H 22 96/63 L 95 11/04/24 03:06 11/04/24 02:51 134 H 31 H 98 11/04/24 02:42 133 H 25 H 11/04/24 02:36 137 H 21 11/04/24 02:15 139 H 23 11/04/24 01:57 144 H 39 H 11/04/24 01:30 145 H 19 11/04/24 01:24 148 H 46 H 11/04/24 01:06 146 H 36 H 11/04/24 01:00 121/60 11/04/24 01:00 121/60 11/04/24 01:00 38.7 C H 11/04/24 00:57 149 H 28 H 11/04/24 00:30 144 H 47 H 11/04/24 00:21 145 H 29 H 11/04/24 00:12 150 H 25 H 11/04/24 00:03 142 H 40 H 11/04/24 00:00 120/76 11/04/24 00:00 120/76 11/03/24 23:57 146 H 34 H 11/03/24 23:54 158 H 30 H 11/03/24 23:39 139 H 28 H 97 11/03/24 23:21 148 H 22 98 11/03/24 23:12 142 H 23 11/03/24 23:08 123/77 11/03/24 23:08 123/77 11/03/24 22:57 141 H 25 H 97 11/03/24 22:51 133 H 30 H 97 11/03/24 22:36 126 H 32 H 96 11/03/24 22:28 122 H 20 127/78 97 11/03/24 22:24 127/78 O2 Del Method FiO2 11/04/24 10:13 11/04/24 08:38 Nasal Cannula 11/04/24 08:38 Room Air 11/04/24 08:26 Room Air 11/04/24 08:03 Room Air 11/04/24 07:21 Room Air 21 11/04/24 03:28 Room Air 11/04/24 03:15 Room Air 11/04/24 03:15 Room Air 11/04/24 03:06 Room Air 11/04/24 02:51 11/04/24 02:42 11/04/24 02:36 11/04/24 02:15 11/04/24 01:57 11/04/24 01:30 11/04/24 01:24 11/04/24 01:06 11/04/24 01:00 11/04/24 01:00 11/04/24 01:00 11/04/24 00:57 11/04/24 00:30 11/04/24 00:21 11/04/24 00:12 11/04/24 00:03 11/04/24 00:00 11/04/24 00:00 11/03/24 23:57 11/03/24 23:54 11/03/24 23:39 11/03/24 23:21 11/03/24 23:12 11/03/24 23:08 11/03/24 23:08 11/03/24 22:57 11/03/24 22:51 11/03/24 22:36 11/03/24 22:28 Room Air 11/03/24 22:24 Critical Care Results & Data Vital Signs (Past 12 Hours) Vital Signs Temp Pulse Pulse Resp BP BP Pulse Ox 11/04/24 10:13 122 H 11/04/24 08:38 99 11/04/24 08:38 83 L 11/04/24 08:26 11/04/24 08:03 37.1 C 125 H 18 94/63 L 91 11/04/24 07:21 124 H 19 91 11/04/24 03:28 37.1 C 136 H 16 103/69 95 11/04/24 03:15 11/04/24 03:15 36.8 C 126 H 22 96/63 L 95 11/04/24 03:06 11/04/24 02:51 134 H 31 H 98 11/04/24 02:42 133 H 25 H 11/04/24 02:36 137 H 21 11/04/24 02:15 139 H 23 11/04/24 01:57 144 H 39 H 11/04/24 01:30 145 H 19 11/04/24 01:24 148 H 46 H 11/04/24 01:06 146 H 36 H 11/04/24 01:00 121/60 11/04/24 01:00 121/60 11/04/24 01:00 38.7 C H 11/04/24 00:57 149 H 28 H 11/04/24 00:30 144 H 47 H 11/04/24 00:21 145 H 29 H 11/04/24 00:12 150 H 25 H 11/04/24 00:03 142 H 40 H 11/04/24 00:00 120/76 11/04/24 00:00 120/76 11/03/24 23:57 146 H 34 H 11/03/24 23:54 158 H 30 H 11/03/24 23:39 139 H 28 H 97 11/03/24 23:21 148 H 22 98 11/03/24 23:12 142 H 23 11/03/24 23:08 123/77 11/03/24 23:08 123/77 11/03/24 22:57 141 H 25 H 97 11/03/24 22:51 133 H 30 H 97 O2 Del Method FiO2 11/04/24 10:13 11/04/24 08:38 Nasal Cannula 11/04/24 08:38 Room Air 11/04/24 08:26 Room Air 11/04/24 08:03 Room Air 11/04/24 07:21 Room Air 21 11/04/24 03:28 Room Air 11/04/24 03:15 Room Air 11/04/24 03:15 Room Air 11/04/24 03:06 Room Air 11/04/24 02:51 11/04/24 02:42 11/04/24 02:36 11/04/24 02:15 11/04/24 01:57 11/04/24 01:30 11/04/24 01:24 11/04/24 01:06 11/04/24 01:00 11/04/24 01:00 11/04/24 01:00 11/04/24 00:57 11/04/24 00:30 11/04/24 00:21 11/04/24 00:12 11/04/24 00:03 11/04/24 00:00 11/04/24 00:00 11/03/24 23:57 11/03/24 23:54 11/03/24 23:39 11/03/24 23:21 11/03/24 23:12 11/03/24 23:08 11/03/24 23:08 11/03/24 22:57 11/03/24 22:51 Lab & Micro Results (Past 24 Hours) RBC 3.85 M/uL (4.20-5.40) L 11/04/24 WBC 25.39 K/ul (4.8-10.8) H 11/04/24 Hgb 11.7 g/dl (12.0-16.0) L 11/04/24 Hct 34.0 % (37.0-47.0) L 11/04/24 MCV 88.3 fL (80.0-100.0) 11/04/24 MCH 30.4 pg (25.0-34.0) 11/04/24 MCHC 34.4 g/dL (32.0-36.0) 11/04/24 RDW Standard Deviation 44.9 fL (36.4-46.3) 11/04/24 RDW Coefficient of Variation 13.8 % (11.5-14.5) 11/04/24 Plt Count 268 K/uL (130-400) 11/04/24 MPV 9.7 fL (9.4-12.4) 11/04/24 Neutrophils (%) (Auto) 88.9 % 11/04/24 Lymphocytes (%) (Auto) 4.7 % 11/04/24 Monocytes # (Auto) 1.13 K/uL (0.11-0.59) H 11/04/24 Eosinophils # (Auto) 0.05 K/uL (0.00-0.50) 11/04/24 Immature Granulocyte % (Auto) 1.1 % 11/04/24 Neutrophils # (Auto) 22.57 K/uL (1.40-6.50) H 11/04/24 Lymphocytes # (Auto) 1.19 K/uL (1.20-3.40) L 11/04/24 Monocytes # (Auto) 1.13 K/uL (0.11-0.59) H 11/04/24 Eosinophils # (Auto) 0.05 K/uL (0.00-0.50) 11/04/24 Basophils # (Auto) 0.16 K/uL (0.00-0.20) 11/04/24 Immature Granulocyte # (Auto) 0.29 K/uL (0.01-0.20) H 11/04 Polychromasia 1+ 11/04/24 Toxic Granulation 1+ 11/04/24 Toxic Vacuolation 1+ 11/04/24 Dohle Bodies 1+ 11/03/24 Na 132 mmol/L (136-145) L 11/04/24 K 3.4 mmol/L (3.5-5.1) L 11/04/24 Cl 102 mmol/L (98-107) 11/04/24 CO2 23 mmol/L (21-32) 11/04/24 Anion Gap 7 (3-11) 11/04/24 BUN 6 mg/dl (6-23) 11/04/24 Creatinine 0.72 mg/dl (0.6-1.2) 11/04/24 BUN/Creatinine Ratio 8.3 (10-20) L 11/04/24 Glu 105 mg/dl (70-99(Fasting)) H 11/04/24 Ca 8.0 mg/dl (8.6-10.3) L 11/04/24 Phosphorus Level 2.9 mg/dl (2.5-4.9) 11/04/24 Total Bilirubin 1.4 mg/dl (0.2-1.0) H 11/04/24 Direct Bilirubin 0.8 mg/dl (0-0.2) H 11/04/24 AST 24 U/L (13-39) 11/04/24 ALT 60 U/L (7-52) H 11/04/24 Alkaline Phosphatase 124 U/L (34-104) H 11/04/24 TP 6.1 gm/dl (6.0-8.3) 11/04/24 Albumin 3.2 gm/dl (3.4-5.0) L 11/04/24 Globulin 3.7 gm/dl (2.5-4.0) 11/03/24 Albumin/Globulin Ratio 1.1 (0.9-2) 11/03/24 Mg 1.9 mg/dl (1.7-2.4) 11/04/24 07:27 Calcium Level 8.0 mg/dl (8.6-10.3) L 11/04/24 07:27 Prothromb Time International Ratio 1.1 (0.9-1.1) 11/03/24 21:4 2 Diagnostic Findings (Past 24 Hours) Chest X-Ray 11/03/24 21:20 Exam(s): XR CXR 1 VIEW EXAM: XR Chest, 1 View CLINICAL HISTORY: Reason for exam: cough, fever. TECHNIQUE: Frontal view of the chest. COMPARISON: No relevant prior studies available. FINDINGS: Lungs: There is an approximately 4.3 cm density in the lateral aspect of the left midline, possibly with central cavitation. There is also increased density in the left suprahilar region. Consider pneumonia versus mass lesions. Pleural space: Unremarkable. No pneumothorax. Heart: Unremarkable. No cardiomegaly. Mediastinum: Unremarkable. Normal mediastinal contour. Bones/joints: Unremarkable. No acute fracture. Upper abdomen: Unremarkable as visualized. No pneumoperitoneum under the diaphragm. IMPRESSION: There is an approximately 4.3 cm density in the lateral aspect of the left midline, possibly with central cavitation. There is also increased density in the left suprahilar region. Consider pneumonia versus mass lesions. Electronically signed by: Hernando Sauceda MD 11/04/24 00:05 AM Chest CTA 11/04/24 03:57 EXAM: CT angio chest PE protocol CLINICAL HISTORY: PE TECHNIQUE: Contiguous axial images were obtained from the neck base through the upper abdomen following intravenous administration of iodinated contrast material. Angiographic images were processed, 3D MIP images were acquired for interpretation. If IV contrast material had not been administered, the likelihood of detecting abnormalities relevant to the patient's condition would have been substantially decreased. Coronal and sagittal 3-D MIPs were likewise performed and indicated to increase the sensitivity of detectin diffuse clinically relevant pathology. CT scan was performed according to ALARA (as low as reasonable achievable). COMPARISON: none. FINDINGS: Bilateral Lung Reese: wedge shaped area of consolidation with surrounding ill-defined GGO's, internal cavity and air bronchogram noted involving left upper lobe Patchy and dense areas of consolidation noted involving left lower lobe with cavitations seen within consolidation of superior basal segment. Scattered nodular opacities within basal segments of left lower lobe, right middle lobe and left lingula with few of the nodules showing tree in bud appearance. Patchy areas of peribronchovascular consolidation seen within basal prostatic superior basal segment and medial and posterior basal segments of right lower lobe. Subsegmental atelectatic changes noted in bilateral lower lobes. minimal left pleural effusion Scattered 2-3 mm calcified nodules in left lower lobe and bilateral upper lobes. The central airways are patent. Cardia and great vessels: dilated main pulmonary artery with a diameter of approximately 33 mm. adequate contrast bolus without evidence of pulmonary embolism. The heart and aorta are of normal size and configuration. There are no appreciable coronary artery and aortic atherosclerotic calcifications. No pericardial effusion is identified. The thyroid is unremarkable. No mediastinal, hilar, or axillary lymphadenopathy is noted. No suspicious lytic or sclerotic osseous lesions are identified. IMPRESSION: No evidence of pulmonary embolism . Multiple areas of consolidation with few of them showing internal cavitations, predominantly involving left upper and bilateral lower lobes Scattered nodular opacities in right middle and bilateral lower lobes. - Features are suggestive of infective etiology (bacterial and fungal) Dilated main pulmonary artery- suggest 2D echo correlation. Electronically signed by Edgar Diego 11-04-2024 05:52 AM I & O Totals 24 Hours 11/03/24 11/04/24 11/05/24 06:59 06:59 06:59 Intake Total 3647.083 / 3647.083 700 / 700 Balance 3647.083 / 3647.083 700 / 700 Cumulative 11/03/24 20:59 thru 11/04/24 10:25 Intake Total 4347.083 Balance 4347.083 RT Ventilator Mngmt (Last Documented) Ventilator Ordered Settings Respiratory Rate 18 11/04/24 08:03 Fraction of Inspired Oxygen 21 11/04/24 0 7:21 Ventilator - PT Measurements Respiratory Rate 18 PG Care Time/CCT Total # of Minutes Spent Total Time Spent with Patient: Total time spent is greater than 50% in coordination of care (as documented) at patient's floor/unit and/or counseling patient: Coding Level of Care Code 66242 INT INP/OBS CARE 3/75MIN Diagnoses Acute streptococcal pharyngitis J02.0 Cavitary lesion of lung J98.4 Sepsis A41.9
[2024-11-04] MEDS: KETOROLAC TROMETHAMINE 15 MG/ML VIAL IV PRN (10:34)
[2024-11-04] MEDS: COUGH DROP (SUGAR FREE) LOZ 24 LOZ/1 BOX BUCCAL PRN (10:34)
[2024-11-04] MEDS: OPTIRAY 320 100ml IV ONE (11:28)
[2024-11-04] MEDS: AMPICILLIN/SULBACTAM SOD 3,000 MG/100 ML BAG IV SCH (11:35)
--- NOTE | 2024-11-04 12:05 | CT Scan Report ---
CT soft tissue neck wo/w con CLINICAL HISTORY: Lemierre syndrome? COMPARISON STUDY: None FINDINGS: There is spray artifact from metallic dental hardware. Thyroid gland, submandibular glands, and parotid glands are unremarkable. There is mild swallowing artifact. There is mild symmetric prom inence of the tonsillar pillars consistent with mild tonsillitis. No peritonsillar abscess. There is mildly enlarged bilateral level 2 lymphadenopathy with largest lymph node a left level 2 node measuri ng 2.1 cm greatest dimension. There is mild cervical spine degenerative disc disease. There is patchy consolidation in the partially visualized left upper lung and a partially visualized left pleural ef fusion, better seen on the chest CT earlier today.. There is mucosal thickening and fluid in the maxi llary and sphenoid sinuses consistent with sinusitis. No mastoid effusion. Jugular veins opacify norm ally and appear widely patent with no evidence of thrombophlebitis. IMPRESSION: 1. Mild tonsillitis. No peritonsillar abscess. 2. Mild level 2 cervical lymphadenopathy, likely reactive. 3. Acute paranasal sinusitis. 4. Otherwise as described. ACT 112: Negative or not required by law. Electronically signed by: Jose Corondao M.D. 11/04/2024 12:02 PM
[2024-11-04] MEDS: POTASSIUM CHLORIDE CRTAB 20 MEQ TABCR PO STA (15:56)
[2024-11-04] MEDS: ACETAMINOPHEN 1,000 MG/100 ML VIAL IV PRN (15:56)
[2024-11-04] MEDS: guaiFENesin 600 MG TABCR PO SCH (20:13)
[2024-11-04] MEDS: PANTOprazole 40 MG TAB PO SCH (20:14)
[2024-11-04] MEDS: MONTELUKAST SODIUM 10 MG TABLET PO SCH (20:14)
[2024-11-04] MEDS: LORATADINE 10 MG TAB PO SCH (20:15)
--- NOTE | 2024-11-04 22:38 | Electrocardiogram Report ---
Test Reason : Blood Pressure : */* mmHG Vent. Rate : 136 BPM Atrial Rate : 136 BPM P-R Int : 120 ms QRS Dur : 78 ms QT Int : 296 ms P-R-T Axes : 56 26 76 degrees QTcB Int : 446 ms Sinus tachycardia Cannot rule out Anterior infarct , age undetermined Nonspecific T wave abnormality Abnormal ECG No previous ECGs available Confirmed by Joe Limon ([id number]) on 11/04/2024 10:38:30 PM Referred By: REFERRED SELF Confirmed By: Joe Limon
[2024-11-05 07:09] LABS: Hematocrit (blood only) 31.7 % (37.0-47.0); Hemoglobin 10.8 g/dl (12.0-16.0); Mean Corpuscular Hemoglobin 30.6 pg (25.0-34.0); Mean Corpuscular Hgb Conc 34.1 g/dL (32.0-36.0); Mean Corpuscular Volume 89.8 fL (80.0-100.0); Platelet Count 273 K/uL (130-400); RDW Coefficient of Variation 13.4 % (11.5-14.5); RDW Standard Deviation 44.2 fL (36.4-46.3); Red Blood Count 3.53 M/uL (4.20-5.40); White Blood Count 30.92 K/ul (4.8-10.8)
[2024-11-05 07:29] LABS: Bilirubin,Total 0.8 mg/dl (0.2-1.0)
[2024-11-05 07:30] LABS: Albumin Level 2.6 gm/dl (3.4-5.0); BUN Creatinine Ratio 12.5 (10-20); Calcium 8.2 mg/dl (8.6-10.3); Creatinine Clr Calc Pharmacy 103.7 ml/min; Globulin 2.6 gm/dl (2.5-4.0); Potassium 3.4 mmol/L (3.5-5.1); Total Protein 5.2 gm/dl (6.0-8.3)
[2024-11-05] MEDS: POT PHOSPHATE MONOBASIC W/ SOD TAB PO SCH (08:46)
--- NOTE | 2024-11-05 08:48 | Pulmonology Progress Note ---
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 CT of the neck showed no evidence of septic thrombophlebitis. Tonsillitis was noted without abscess or phlegmon. Recommendations: 1. Presumptive lung abscess. Cultures negative to date. Continue Unasyn for now. Infectious disease consult pending and will defer antibiotics and duration of therapy to them. Typically would favor 6 weeks of antibiotics with follow-up CT scan in 6 weeks. Given clinical improvement, would favor continuing therapy rather than pursuing an invasive approach such as bronchoscopy at this point in time unless ID feels strongly about bronc alveolar lavage 2. White blood cell count stable. Fever curve improved but would continue to trend white blood cell count at this point in time. 3. Continue oxygen titrated to keep saturations at or above 88%. She is now off oxygen 4. Increase activity as tolerated. Will continue to follow with you. Feel free to contact us with questions or concerns Admission and Anticipated Discharge Date Admission Date: November 03, 2024 Subjective Patient seen and examined. EMR reviewed. The patient reports that she is feeling better. She is not coughing or experiencing significant phlegm production. No hemoptysis. Her sore throat is better. She is now off oxygen. Her fever curve is improving. She is able to swallow somewhat. She has no new respiratory concerns today Review of Systems 2 Review of Systems: All systems reviewed & are unremarkable except as noted in Subjective Physical Exam 2 Constitutional: WD/WN, vitals as above Neck: trachea midline, no thyromegaly Respiratory: normal respiratory effort, lungs clear to auscultation Cardiovascular: RRR, no murmur, no edema Gastrointestinal (Abdomen): normal bowel sounds, soft, nontender, no hepatosplenomegaly Musculoskeletal: Extremities: extremities normal to inspection Skin: no rashes, warm and dry Lymphatic: no cervical lymphadenopathy Results & Data Results & Data Vital Signs (Past 12 Hours) Vital Signs Temp Pulse Pulse Resp BP Pulse Ox O2 Del Method 11/05/24 07:51 110 H 18 117/80 94 Room Air 11/05/24 07:24 101 H 17 96 Nasal Cannula 11/05/24 03:29 36.6 C 105 H 18 103/67 95 Nasal Cannula 11/04/24 23:24 37.0 C 115 H 18 102/67 89 L Room Air 11/04/24 21:40 116 H O2 Flow Rate 11/05/24 07:51 11/05/24 07:24 2 11/05/24 03:29 2 11/04/24 23:24 11/04/24 21:40 Laboratory Results 11/05/24 06:17 11/05/24 06:17 Microbiology 11/04/24 07:43 Blood Aerobic Blood Culture - Preliminary No growth in Aerobic bottle after 24 hours. 11/04/24 07:43 Blood Anaerobic Blood Culture - Preliminary No growth in Anaerobic bottle after 24 hours. 11/04/24 07:27 Blood Aerobic Blood Culture - Preliminary No growth in Aerobic bottle after 24 hours. 11/04/24 07:27 Blood Anaerobic Blood Culture - Preliminary No growth in Anaerobic bottle after [address] of the neck showed evidence of tonsillitis without abscess or phlegmon. Jugular veins were patent PG Care Time/CCT Total # of Minutes Spent Total Time Spent with Patient: Total time spent is greater than 50% in coordination of care (as documented) at patient's floor/unit and/or counseling patient: Coding Level of Care Code 45956 SUB INP/OBS CARE 235MIN Diagnoses Acute streptococcal pharyngitis J02.0 Cavitary lesion of lung J98.4 Sepsis A41.9
--- NOTE | 2024-11-05 09:19 | Hospitalist Progress Note ---
Date of Service November 05, 2024 Assessment & Plan (1) Sepsis: Plan: 54-year-old female with past medical history significant for allergies, GERD presents with fever, sore throat and runny nose and near syncope. 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 Lab notable for WBC 35. Magnesium 1.1. Total bili 1.3. ALT 91. Alkaline phos 117. Respiratory bio fire came back positive for coronavirus 229 E and group B strep positive. S Sepsis Streptococcal pharyngitis Cavitary lung lesion Chest x-ray shows cavitary lesion in the left midline. Possible pneumonia versus mass lesions CT chest noted multiple area of consolidation with few showing internal cavitation CT neck noted mild tonsilitis. No peritonsilar abscess, mild cervical lymphadenopathy, Acute paranasal sinusitis Currently on unasyn and doxy Still has leukocytosis 30K this AM. Blood culture in lab Pulm recs noted ID c/s BP improved. Tachycardia improving. Continue IVF, reduced to 100cc/h Near syncope Likely from sepsis and tachycardia Troponin was normal Echo reviewed. Unremarkable Prolonged QTc Avoid QT prolonging drugs Hypokalemia Hypophosphatemia Replete and monitor Mild transaminitis On admission, Total bilirubin 1.3, AST 39, ALT 91, Alkaline phos is 179 Likely due to sepsis LFT improving. TBil 0.8, AST 24, ALT 38, Alk Phos 171 GERD Continue omeprazole DVT prophylaxis Lovenox Full code. I spent a total of 50 minutes coordinating, documenting and providing care for this patient excluding time spent in performance of separately billed services Admission and Anticipated Discharge Date Admission Date: November 03, 2024 Subjective Patient seen and examined Still reports cough but reports sore throat improved Reports feeling better No dizziness today Physical Exam Constitutional: + well hydrated; no acute distress Eyes: PERRL, conjunctivae normal, anicteric sclerae Respiratory: normal respiratory effort, lungs clear to auscultation Cardiovascular: Rate/Rhythm: + tachycardic Gastrointestinal (Abdomen): normal bowel sounds, soft, nontender, no hepatosplenomegaly Musculoskeletal: no cyanosis or clubbing, extremities motor strength 5/5 Neurologic: PERRL, EOMI, accommodation nl, no face palsy, no dysarthria Psychiatric: A+Ox3, euthymic affect Results & Data Results & Data Vital Signs (Past 12 Hours) Vital Signs Temp Pulse Pulse Resp BP Pulse Ox O2 Del Method 11/05/24 07:51 110 H 18 117/80 94 Room Air 11/05/24 07:24 101 H 17 96 Nasal Cannula 11/05/24 03:29 36.6 C 105 H 18 103/67 95 Nasal Cannula 11/04/24 23:24 37.0 C 115 H 18 102/67 89 L Room Air 11/04/24 21:40 116 H O2 Flow Rate 11/05/24 07:51 11/05/24 07:24 2 11/05/24 03:29 2 11/04/24 23:24 11/04/24 21:40 Laboratory Results Abnormal lab results 11/05/24 Range/Units 06:17 WBC 30.92 H* (4.8-10.8) K/ul RBC 3.53 L (4.20-5.40) M/uL Hgb 10.8 L (12.0-16.0) g/dl Hct 31.7 L (37.0-47.0) % Potassium 3.4 L (3.5-5.1) mmol/L Chloride 110 H (98-107) mmol/L Creatinine 0.56 L (0.6-1.2) mg/dl Calcium 8.2 L (8.6-10.3) mg/dl Phosphorus 2.0 L (2.5-4.9) mg/dl Alkaline Phosphatase 171 H (34-104) U/L Total Protein 5.2 L (6.0-8.3) gm/dl Albumin 2.6 L (3.4-5.0) gm/dl
--- NOTE | 2024-11-05 10:00 | Electrocardiogram Report ---
Test Reason : Blood Pressure : */* mmHG Vent. Rate : 101 BPM Atrial Rate : 101 BPM P-R Int : 164 ms QRS Dur : 84 ms QT Int : 356 ms P-R-T Axes : 73 31 66 degrees QTcB Int : 461 ms Sinus tachycardia Otherwise normal ECG When compared with ECG of 03-Nov-2024 21:16, Minimal criteria for Anterior infarct are no longer Present Confirmed by Joe Limon ([id number]) on 11/05/2024 9:59:57 AM Referred By: REFERRED SELF Confirmed By: Joe Limon
--- NOTE | 2024-11-05 12:21 | Infectious Disease Consult ---
Date of Service November 05, 2024 Telehealth Information I performed this visit using a real-time telehealth connection between my location and the patients location ([facility]). After connecting through interactive tele-video, patient was identified by name and date of and/or wristband check.Patient (or authorized healthcare corporate sales representative) was informed that this was a telemedicine visit and it was being conducted confidentially over secure lines. My office door was closed and no on e else was present in the room with me.Patient (or authorized healthcare corporate sales representative) provided consent to proceed with the visit, expressed an understanding of privacy and security of the telemedicine visit, and gave permission to have a hospital corporate sales representative in the room in order to assist with the visit and to conduct portions of the visit, as needed. I informed the patient (or authorized healthcare corporate sales representative) that I reviewed their record and presented the opportunity for them to ask any questions regarding the visit today. The patient agreed to participate. Assessment & Plan (1) Cavitary pneumonia: (2) Acute streptococcal pharyngitis: Plan - Please continue on IV unasyn. - Discontinue doxycycline and start on oral Linezolid 600 mg PO BID for it's antitoxin effect andya with the cavitary lung disease. - Obtain resp cultures if possible. - If the patient continued to improve and whenever ready for discharge, step down IV unasyn to oral Augmentin 875/125 TID along with oral Linezolid 600 mg PO BID. - Aim for 10 days of oral Linezolid 600 mg BID with anticipated end date of Nov 14, 2024, and 4 weeks of oral Augmentin 875/125 TID with anticipated end date of November 30, 2024. - Thank you for consulting ID. We will sign off for now. History of Present Illness History of Present Illness Ms. Dickerson is a 54 yo woman with medical hx of allergic reactive airways who was admitted to [facility] on 11/03 because of sore throat and fever. She mentioned that around 1 month ago, she started having a flu like illness manifesting mainly as runny nose and cough which she attributed it to allergies. Around 4 days prior to presentation, she started having sore throat with fever, cervical lymphadenopathy and generalized fatigue. Also, one to 2 days prior to presentation, she started feeling dizzy with near syncope nadya on standing up from sitting or laying down position. On presentation, she was tachycardic but not hypoxic or febrile. However, since admission, she has had 2 episodes of fever. Initial workup showed leukocytosis of 35 (ANC 29), mildly elevated LFTs, and RVP pos for coronavirus (non-covid). Strep throat PCR was pos and CXR/CTA chest showed multiple areas of consolidation with few of them showing internal cavitations, predominantly involving left upper and bilateral lower lobes with scattered nodular opacities in right middle and bilateral lower lobes. ID team was consulted for further recommendations and to help guide antibiotic treatment. Allergies Allergy/AdvReac Type Severity Reaction Status Date / Time No Known Allergies Allergy Verified 11/03/24 22:04 Home Medications Medication Instructions Recorded Confirmed Type fluticasone propionate 50 2 spray intranasal DAILY PRN 11/03/24 11/03/24 History mcg/actuation nasal Congestion spray,suspension (Flonase Allergy Relief) loratadine 10 mg tablet (Claritin) 10 mg PO QPM 11/03/24 11/03/24 History metaxalone 800 mg tablet 800 mg PO TID PRN Muscle Spasm 11/03/24 11/03/24 History montelukast 10 mg tablet 10 mg PO PM 11/03/24 11/03/24 History omeprazole 20 mg tablet,delayed 20 mg PO QPM 11/03/24 11/03/24 History release Patient History Social History (Updated 11/04/24 @ 01:33 by Cynthia Starkey RN) Smoking Status: Former smoker Tobacco Type: Cigarettes Second Hand Exposure: No; Do You Dip or Chew Tobacco: No; Hx Alcohol Use: No Hx Substance Use: No Preferred Language: Tongan Communication Ability: Effective 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 Physical Exam Couldn't be performed as the visit was conducted via telemed. Results & Data Vital Signs (Past 12 Hours) Vital Signs Temp Pulse Pulse Resp BP Pulse Ox O2 Del Method 11/05/24 11:42 36.8 C 105 H 18 131/85 98 Room Air 11/05/24 09:00 102 H 11/05/24 07:51 110 H 18 117/80 94 Room Air 11/05/24 07:24 101 H 17 96 Nasal Cannula 11/05/24 03:29 36.6 C 105 H 18 103/67 95 Nasal Cannula O2 Flow Rate 11/05/24 11:42 11/05/24 09:00 11/05/24 07:51 11/05/24 07:24 2 11/05/24 03:29 2 Laboratory Results 11/03: RVP panel pos for coronavirus (non-COVID) 11/03: strep throat PCR pos 11/04: 2 sets of blood Cx NTD Diagnostic Findings CTA chest on 11/04: Multiple areas of consolidation with few of them showing internal cavitations, predominantly involving left upper and bilateral lower lobes Scattered nodular opacities in right middle and bilateral lower lobes.
[2024-11-05] MEDS ORDERED: METAXALONE 800 MG TABLET PO PRN (18:39)
[2024-11-05] MEDS: LINEZOLID 600 MG TAB PO SCH (21:05)
[2024-11-05] MEDS: FLUTICASONE PROPIONATE NA SPR 16 GM BTL PRN (21:47)
[2024-11-05] MEDS: ADVANCED PROBIOTIC 625 MG CAPSULE PO SCH (21:58)
--- NOTE | 2024-11-06 08:17 | XRay Report ---
XR chest 1V portable CLINICAL HISTORY: pna COMPARISON STUDY: 11/03/2024 FINDINGS: Stable mild cardiomegaly with mild pulmonary vascular congestion. There is increased patchy opacity throughout the left lung and at the right lung base. Stable trace left pleural effusion. The re is relative lucency at the left lung apex which likely represents artifact. No pneumothorax seen o therwise. IMPRESSION: 1. Increased bilateral pneumonia, left greater than right. 2. Likely artifact at the left lung apex rather than small pneumothorax. Follow-up chest x-ray recomm ended tomorrow morning, or earlier if clinical symptoms warrant. ACT 112: Negative or not required by law. Electronically signed by: Jose Coronado M.D. 11/06/2024 8:16 AM
[2024-11-06 08:41] LABS: Hematocrit (blood only) 31.4 % (37.0-47.0); Hemoglobin 11.1 g/dl (12.0-16.0); Mean Corpuscular Hemoglobin 31.1 pg (25.0-34.0); Mean Corpuscular Hgb Conc 35.4 g/dL (32.0-36.0); Mean Platelet Volume 10.1 fL (9.4-12.4); Platelet Count 299 K/uL (130-400); RDW Coefficient of Variation 14.6 % (11.5-14.5); RDW Standard Deviation 47.2 fL (36.4-46.3); Red Blood Count 3.57 M/uL (4.20-5.40); White Blood Count 36.41 K/ul (4.8-10.8)
[2024-11-06 08:55] LABS: Albumin Level 2.8 gm/dl (3.4-5.0); BUN Creatinine Ratio 9.1 (10-20); Bilirubin,Total 0.9 mg/dl (0.2-1.0); Calcium 8.4 mg/dl (8.6-10.3); Globulin 2.9 gm/dl (2.5-4.0); Magnesium 1.7 mg/dl (1.7-2.4); Phosphorus 3.4 mg/dl (2.5-4.9); Potassium 3.6 mmol/L (3.5-5.1); Total Protein 5.7 gm/dl (6.0-8.3)
--- NOTE | 2024-11-06 09:43 | Pulmonology Progress Note ---
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 CT of the neck showed no evidence of septic thrombophlebitis. Tonsillitis was noted without abscess or phlegmon. Antibiotics per ID Recommendations: 1. Presumptive lung abscess. Cultures negative to date. Chest x-ray with a more diffuse opacity today but the patient remains on room air. Antibiotics per ID. Repeat chest x-ray in a.m.. 2. White blood cell count slightly increased today but fever curve better and the patient feels better. 3. Continue oxygen titrated to keep saturations at or above 88%. She is now off oxygen 4. Increase activity as tolerated. Will continue to follow with you. Feel free to contact us with questions or concerns Admission and Anticipated Discharge Date Admission Date: November 03, 2024 Subjective Patient seen and examined. EMR reviewed. The patient was seen by ID. Recommendations were reviewed. Her biggest complaint currently is a headache. Has been unresponsive to most interventions. She is coughing and feels some phlegm coming up but is unable to expectorate it. She reports intermittent heavy breathing. Her tachycardia and fever curve improved Review of Systems 2 Review of Systems: All systems reviewed & are unremarkable except as noted in Subjective Physical Exam 2 Constitutional: WD/WN, vitals as above Neck: trachea midline, no thyromegaly Respiratory: normal respiratory effort, lungs clear to auscultation Cardiovascular: RRR, no murmur, no edema Gastrointestinal (Abdomen): normal bowel sounds, soft, nontender, no hepatosplenomegaly Musculoskeletal: Extremities: extremities normal to inspection Skin: no rashes, warm and dry Lymphatic: no cervical lymphadenopathy Results & Data Results & Data Vital Signs (Past 12 Hours) Vital Signs Temp Pulse Pulse Resp BP Pulse Ox O2 Del Method 11/06/24 08:05 36.6 C 87 16 128/86 94 Room Air 11/06/24 07:29 93 H 16 93 Room Air 11/06/24 07:10 100 H 11/06/24 02:48 36.7 C 100 H 16 128/84 96 Room Air 11/05/24 22:54 36.6 C 108 H 16 123/82 93 Room Air 11/05/24 21:54 103 H Laboratory Results 11/06/24 07:58 11/06/24 07:58 Diagnostic Findings Chest x-ray today independently reviewed. There is progressive opacity within the left hemithorax. Apical lucency. Unclear if this represents artifact or potential pneumothorax. Follow-up imaging recommended PG Care Time/CCT Total # of Minutes Spent Total Time Spent with Patient: Total time spent is greater than 50% in coordination of care (as documented) at patient's floor/unit and/or counseling patient: Coding Level of Care Code 78721 SUB INP/OBS CARE 2/35MIN Diagnoses Acute streptococcal pharyngitis J02.0 Cavitary lesion of lung J98.4 Sepsis A41.9
--- NOTE | 2024-11-06 10:25 | Hospitalist Progress Note ---
Date of Service November 06, 2024 Assessment & Plan (1) Sepsis: Plan: 54-year-old female with past medical history significant for allergies, GERD presents with fever, sore throat and runny nose and near syncope. 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 Lab notable for WBC 35. Magnesium 1.1. Total bili 1.3. ALT 91. Alkaline phos 117. Respiratory bio fire came back positive for coronavirus 229 E and group B strep positive. Sepsis Streptococcal pharyngitis Cavitary lung lesion, possible lung abscess Chest x-ray shows cavitary lesion in the left midline. Possible pneumonia versus mass lesions CT chest noted multiple area of consolidation with few showing internal cavitation CT neck noted mild tonsilitis. No peritonsilar abscess, mild cervical lymphadenopathy, Acute paranasal sinusitis Leukocytosis worsened Blood culture negative so far Get sputum for culture Pulm recs noted ID recs noted Currently on linezolid and unasyn. Plan for linezolid till 11/14/24 and Augmentin 875 TID on dc till 11/30/24 Near syncope Likely from sepsis and tachycardia Troponin was normal Echo reviewed. Unremarkable Prolonged QTc Avoid QT prolonging drugs Hypokalemia Hypophosphatemia Replete and monitor Mild transaminitis On admission, Total bilirubin 1.3, AST 39, ALT 91, Alkaline phos is 179 Likely due to sepsis LFT improving. TBil 0.9, AST 17, ALT 33, Alk Phos 154 GERD Continue omeprazole DVT prophylaxis Lovenox Full code. I spent a total of 50 minutes coordinating, documenting and providing care for this patient excluding time spent in performance of separately billed services Admission and Anticipated Discharge Date Admission Date: November 03, 2024 Subjective Patient seen and examined Reports headache Reports cough and SOB are improved Tachycardia and fever have resolved Physical Exam Constitutional: + ill appearing and + well hydrated; no acute distress Eyes: PERRL, conjunctivae normal, anicteric sclerae Respiratory: normal respiratory effort, lungs clear to auscultation Cardiovascular: Rate/Rhythm: regular rate and regular rhythm Gastrointestinal (Abdomen): normal bowel sounds, soft, nontender, no hepatosplenomegaly Musculoskeletal: no cyanosis or clubbing, extremities motor strength 5/5 Neurologic: PERRL, EOMI, accommodation nl, no face palsy, no dysarthria Psychiatric: A+Ox3, euthymic affect Results & Data Results & Data Vital Signs (Past 12 Hours) Vital Signs Temp Pulse Pulse Resp BP Pulse Ox O2 Del Method 11/06/24 08:05 36.6 C 87 16 128/86 94 Room Air 11/06/24 08:00 Room Air 11/06/24 07:29 93 H 16 93 Room Air 11/06/24 07:10 100 H 11/06/24 02:48 36.7 C 100 H 16 128/84 96 Room Air 11/05/24 22:54 36.6 C 108 H 16 123/82 93 Room Air Laboratory Results Abnormal lab results 11/06/24 Range/Units 07:58 WBC 36.41 H* (4.8-10.8) K/ul RBC 3.57 L (4.20-5.40) M/uL Hgb 11.1 L (12.0-16.0) g/dl Hct 31.4 L (37.0-47.0) % RDW Std Deviation 47.2 H (36.4-46.3) fL RDW Coeff of Jameel 14.6 H (11.5-14.5) % Chloride 108 H (98-107) mmol/L BUN 5 L (6-23) mg/dl Creatinine 0.55 L (0.6-1.2) mg/dl BUN/Creatinine Ratio 9.1 L (10-20) Calcium 8.4 L (8.6-10.3) mg/dl Alkaline Phosphatase 154 H (34-104) U/L Total Protein 5.7 L (6.0-8.3) gm/dl Albumin 2.8 L (3.4-5.0) gm/dl
--- NOTE | 2024-11-06 12:36 | Electrocardiogram Report ---
Test Reason : Blood Pressure : */* mmHG Vent. Rate : 98 BPM Atrial Rate : 98 BPM P-R Int : 162 ms QRS Dur : 90 ms QT Int : 360 ms P-R-T Axes : 62 9 62 degrees QTcB Int : 459 ms Normal sinus rhythm Normal ECG When compared with ECG of 05-Nov-2024 05:13, No significant change was found Confirmed by Raphael Travis ([id number]) on 11/06/2024 12:36:29 PM Referred By: REFERRED SELF Confirmed By: Raphael Travis
[2024-11-06] MEDS: ONDANSETRON INJ 2 MG/ML 2 ML VIAL IV PRN (13:20)
[2024-11-07] MEDS: ACETAMINOPHEN 325 MG TAB PO PRN (06:20)
[2024-11-07 06:34] LABS: Hematocrit (blood only) 33.1 % (37.0-47.0); Hemoglobin 11.8 g/dl (12.0-16.0); Mean Corpuscular Hemoglobin 30.7 pg (25.0-34.0); Mean Corpuscular Hgb Conc 35.6 g/dL (32.0-36.0); Mean Corpuscular Volume 86.2 fL (80.0-100.0); Mean Platelet Volume 10.1 fL (9.4-12.4); Platelet Count 323 K/uL (130-400); RDW Coefficient of Variation 14.4 % (11.5-14.5); RDW Standard Deviation 44.8 fL (36.4-46.3); Red Blood Count 3.84 M/uL (4.20-5.40); White Blood Count 31.63 K/ul (4.8-10.8)
[2024-11-07 06:52] LABS: Basophils # (auto) 0.24 K/uL (0.00-0.20); Basophils % (auto) 0.8 %; Eosinophils # (auto) 0.22 K/uL (0.00-0.50); Eosinophils % (auto) 0.7 %; Immature Granulocytes # (auto) 1.59 K/uL (0.01-0.20); Lymphocytes # (auto) 4.25 K/uL (1.20-3.40); Lymphocytes % (auto) 13.4 %; Monocytes # (auto) 2.09 K/uL (0.11-0.59); Monocytes % (auto) 6.6 %; Neutrophils # (auto) 23.24 K/uL (1.40-6.50); Neutrophils % (auto) 73.5 %
[2024-11-07 06:53] LABS: BUN Creatinine Ratio 5.4 (10-20); Calcium 8.6 mg/dl (8.6-10.3); Creatinine Clr Calc Pharmacy 105.1 ml/min; Potassium 3.3 mmol/L (3.5-5.1)
--- NOTE | 2024-11-07 07:52 | XRay Report ---
EXAM: XR chest 1V portable CLINICAL HISTORY: PNA. TECHNIQUE: An X-ray image of the chest is obtained in AP projection. COMPARISON: 11/04/2024 CT chest and 11/03/2024 XR chest. FINDINGS: Pulmonary Parenchyma: Multiple opacities could represent areas of consolidation as well as Scattered nodular opacities in both lung ernst. Features are suggestive of infective etiology (bacterial and fungal). Haziness in the left lung field. Progressed. Mildly blunted both CP angles, more at the left side. New. Heart and Mediastinum: Heart size and shape are normal. No mediastinal widening or masses. No hilar or mediastinal lymphadenopathy. Bony Thorax: Bony thorax appears intact without fractures or deformities. Soft Tissues: Soft tissues overlying the chest wall are unremarkable. IMPRESSION: 1. Multiple opacities could represent areas of consolidation as well as Scattered nodular opacities in both lung ernst. Progressed. 2. Haziness in the left lung field. Progressed. 3. Mildly blunted both CP angles, more at the left side. New. Electronically signed by Baldomero Pennington 11-07-2024 07:52 AM
[2024-11-07] MEDS: SODIUM CHLOR 7% 4 ML NEB ONE (08:18)
[2024-11-07] MEDS: SODIUM CHLOR 7% 4 ML NEB NEB ONE (08:18)
--- NOTE | 2024-11-07 08:30 | Pulmonology Progress Note ---
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 CT of the neck showed no evidence of septic thrombophlebitis. Tonsillitis was noted without abscess or phlegmon. Antibiotics adjusted per ID. She is no longer requiring oxygen and her fever curve is improved however white count remains elevated. Recommendations: 1. Presumptive lung abscess. Cultures negative to date. Chest x-ray with a more diffuse opacity today but the patient remains on room air. Antibiotics per ID. Repeat chest x-ray in a.m.. 2. White blood cell count improving today. Clinically she is improved as well. Chest x-ray is suggestive of potential small left-sided effusion and will follow-up with chest x-ray in the a.m. Given the increase in parenchymal opacities, will give a single dose of Lasix and replete potassium as well. Repeat electrolytes in a.m. 3. Continue oxygen titrated to keep saturations at or above 88%. She is now off oxygen 4. Increase activity as tolerated. Will continue to follow with you. Feel free to contact us with questions or concerns If she does well and her x-ray looks better in the a.m., she may be able to be discharged on antibiotics as noted by ID. She will need a follow-up chest x-ray in 2 to 4 weeks and a follow-up CT scan in 4 to 6 weeks Admission and Anticipated Discharge Date Admission Date: November 03, 2024 Subjective Patient seen and examined. EMR reviewed. The patient reports she is feeling better. She is been up moving around. Her pharyngitis is improving. She continues to occasionally cough but is not really expectorating any phlegm. Her fever curve is better. White blood cell count is down today. The tightness in her chest is improved as well Review of Systems 2 Review of Systems: All systems reviewed & are unremarkable except as noted in Subjective Physical Exam 2 Constitutional: WD/WN, vitals as above Neck: trachea midline, no thyromegaly Respiratory: no respiratory distress, no labored breathing, no cough and not tachypneic Auscultation: + diminished lung sounds and + crackles Cardiovascular: RRR, no murmur, no edema Gastrointestinal (Abdomen): normal bowel sounds, soft, nontender, no hepatosplenomegaly Musculoskeletal: Extremities: extremities normal to inspection Skin: no rashes, warm and dry Lymphatic: no cervical lymphadenopathy Results & Data Results & Data Vital Signs (Past 12 Hours) Vital Signs Temp Pulse Pulse Pulse Resp BP Pulse Ox 11/07/24 08:18 99 H 15 93 11/07/24 07:49 37 C 101 H 20 137/83 92 11/07/24 07:06 95 H 16 92 11/07/24 03:49 36.8 C 103 H 18 138/87 89 L 11/06/24 23:44 36.9 C 108 H 16 126/78 92 11/06/24 21:45 107 H O2 Del Method 11/07/24 08:18 Room Air 11/07/24 07:49 Room Air 11/07/24 07:06 Room Air 11/07/24 03:49 Room Air 11/06/24 23:44 Room Air 11/06/24 21:45 Laboratory Results 11/07/24 06:08 11/07/24 06:08 Cultures no growth to date Diagnostic Findings Chest x-ray from today independently reviewed. There is increased opacity within the right upper lobe. Small potential effusion at the left lung base with persistent airspace opacity throughout the left lung ernst PG Care Time/CCT Total # of Minutes Spent Total Time Spent with Patient: Total time spent is greater than 50% in coordination of care (as documented) at patient's floor/unit and/or counseling patient: Coding Level of Care Code 29934 SUB INP/OBS CARE 2/35MIN Diagnoses Acute streptococcal pharyngitis J02.0 Cavitary lesion of lung J98.4 Sepsis A41.9
[2024-11-07] MEDS: FUROSEMIDE INJ 20 MG/2 ML VIAL IV ONE (08:57)
[2024-11-07] MEDS: POTASSIUM CHLORIDE CRTAB 20 MEQ TABCR PO STA (08:57)
[2024-11-07] MEDS: POTASSIUM CHLORIDE 20 MEQ/15 ML UDC PO SCH (08:58)
[2024-11-07] MEDS: SODIUM CHLORIDE 0.65% NA SOLN 45 ML (OCEAN) ONE (09:00)
[2024-11-07] MEDS ORDERED: SODIUM CHLORIDE 0.65% NA SOLN 45 ML (OCEAN) PRN (09:45)
--- NOTE | 2024-11-07 10:57 | Hospitalist Progress Note ---
Date of Service November 07, 2024 Assessment & Plan (1) Sepsis: Plan: 54-year-old female with past medical history significant for allergies, GERD presents with fever, sore throat and runny nose and near syncope. 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 Lab notable for WBC 35. Magnesium 1.1. Total bili 1.3. ALT 91. Alkaline phos 117. Respiratory bio fire came back positive for coronavirus 229 E and group B strep positive. Sepsis Streptococcal pharyngitis Cavitary lung lesion, possible lung abscess Chest x-ray shows cavitary lesion in the left midline. Possible pneumonia versus mass lesions CT chest noted multiple area of consolidation with few showing internal cavitation CT neck noted mild tonsilitis. No peritonsilar abscess, mild cervical lymphadenopathy, Acute paranasal sinusitis WBC improved to 31K today Blood culture negative so far Get sputum for culture Pulm recs noted ID recs noted Currently on linezolid and unasyn. Plan to continue linezolid till 11/14/24 and Augmentin 875 TID on dc till 11/30/24 Hypokalemia Replete and monitor Near syncope Likely from sepsis and tachycardia Troponin was normal Echo reviewed. Unremarkable Prolonged QTc Avoid QT prolonging drugs Mild transaminitis On admission, Total bilirubin 1.3, AST 39, ALT 91, Alkaline phos is 179 Likely due to sepsis LFT improved GERD Continue omeprazole DVT prophylaxis Lovenox Full code. I spent a total of 50 minutes coordinating, documenting and providing care for this patient excluding time spent in performance of separately billed services Admission and Anticipated Discharge Date Admission Date: November 03, 2024 Subjective Patient seen and examined Reports cough and SOB are improving Reports headache Cough is nonproductive No more fevers Physical Exam Constitutional: + well hydrated; no acute distress Eyes: PERRL, conjunctivae normal, anicteric sclerae Respiratory: normal respiratory effort, lungs clear to auscultation Cardiovascular: Rate/Rhythm: regular rate and regular rhythm Gastrointestinal (Abdomen): normal bowel sounds, soft, nontender, no hepatosplenomegaly Musculoskeletal: no cyanosis or clubbing, extremities motor strength 5/5 Neurologic: PERRL, EOMI, accommodation nl, no face palsy, no dysarthria Psychiatric: A+Ox3, euthymic affect Results & Data Results & Data Vital Signs (Past 12 Hours) Vital Signs Temp Pulse Pulse Pulse Resp BP Pulse Ox 11/07/24 08:18 99 H 15 93 11/07/24 08:00 100 H 11/07/24 08:00 11/07/24 07:49 37 C 101 H 20 137/83 92 11/07/24 07:06 95 H 16 92 11/07/24 03:49 36.8 C 103 H 18 138/87 89 L 11/06/24 23:44 36.9 C 108 H 16 126/78 92 O2 Del Method 11/07/24 08:18 Room Air 11/07/24 08:00 11/07/24 08:00 Room Air 11/07/24 07:49 Room Air 11/07/24 07:06 Room Air 11/07/24 03:49 Room Air 11/06/24 23:44 Room Air Laboratory Results Abnormal lab results 11/07/24 11/07/24 Range/Units 06:08 07:52 WBC 31.63 H* (4.8-10.8) K/ul RBC 3.84 L (4.20-5.40) M/uL Hgb 11.8 L (12.0-16.0) g/dl Hct 33.1 L (37.0-47.0) % Neut # (Auto) 23.24 H (1.40-6.50) K/uL Lymph # (Auto) 4.25 H (1.20-3.40) K/uL Kerr # (Auto) 2.09 H (0.11-0.59) K/uL Baso # (Auto) 0.24 H (0.00-0.20) K/uL Immature Gran # (Auto) 1.59 H (0.01-0.20) K/uL Potassium 3.3 L (3.5-5.1) mmol/L BUN 3 L (6-23) mg/dl Creatinine 0.56 L (0.6-1.2) mg/dl BUN/Creatinine Ratio 5.4 L (10-20) Glucose 100 H (70-99(Fasting)) mg/dl Procalcitonin 5.99 H (0-0.5) ng/ml
[2024-11-07] MEDS: BUTALBITAL/ACETAMIN/CAFFEINE TAB PO PRN (14:32)
--- NOTE | 2024-11-08 07:55 | XRay Report ---
EXAM: XR chest 1V portable CLINICAL HISTORY: effusion TECHNIQUE: An X-ray image of the chest is obtained using an AP projection. COMPARISON: 11/07/24 previous x-ray FINDINGS: Pulmonary Parenchyma: Extensive multiple patchy opacities could represent areas of consolidation and scattered nodular opacities in both lung ernst. Features suggest infective etiology. Opacification in the left lung field. Both CP angles are blunted, more at the left side. Heart and Mediastinum: Heart size and shape are normal. No mediastinal widening or masses. No hilar or mediastinal lymphadenopathy. Bony Thorax: The bony thorax appears intact without fractures or deformities. Soft Tissues: Soft tissues overlying the chest wall are unremarkable. IMPRESSION: Regarding the previous study, there is an interval increase of all findings, with patchy opacities in both lungs, associated with opacification of the left lung. The left pleural effusion remains similar. Electronically signed by Baldomero Pennington 11-08-2024 07:54 AM
[2024-11-08 08:03] LABS: Toxic Vacuolation 1+
[2024-11-08 10:10] LABS: Hematocrit (blood only) 27.7 % (37.0-47.0); Hemoglobin 10.1 g/dl (12.0-16.0); Mean Corpuscular Hemoglobin 30.9 pg (25.0-34.0); Mean Corpuscular Hgb Conc 36.5 g/dL (32.0-36.0); Mean Corpuscular Volume 84.7 fL (80.0-100.0); Mean Platelet Volume 9.8 fL (9.4-12.4); Platelet Count 296 K/uL (130-400); RDW Coefficient of Variation 14.1 % (11.5-14.5); RDW Standard Deviation 44.1 fL (36.4-46.3); Red Blood Count 3.27 M/uL (4.20-5.40); White Blood Count 21.52 K/ul (4.8-10.8)
--- NOTE | 2024-11-08 10:11 | Hospitalist Progress Note ---
Date of Service November 08, 2024 Assessment & Plan (1) Sepsis: Plan: 54-year-old female with past medical history significant for allergies, GERD presents with fever, sore throat and runny nose and near syncope. 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 Lab notable for WBC 35. Magnesium 1.1. Total bili 1.3. ALT 91. Alkaline phos 117. Respiratory bio fire came back positive for coronavirus 229 E and group B strep positive. Sepsis Streptococcal pharyngitis Cavitary lung lesion, possible lung abscess Chest x-ray shows cavitary lesion in the left midline. Possible pneumonia versus mass lesions CT chest noted multiple area of consolidation with few showing internal cavitation CT neck noted mild tonsilitis. No peritonsilar abscess, mild cervical lymphadenopathy, Acute paranasal sinusitis Leukocytosis improving to 21K today Blood culture negative so far Pulm recs noted ID recs noted Currently on linezolid and unasyn. Plan to continue linezolid till 11/14/24 and Augmentin 875 TID on dc till 11/30/24 Hypokalemia Replete and monitor Near syncope Likely from sepsis and tachycardia Troponin was normal Echo reviewed. Unremarkable Prolonged QTc Avoid QT prolonging drugs Mild transaminitis On admission, Total bilirubin 1.3, AST 39, ALT 91, Alkaline phos is 179 Likely due to sepsis LFT improved GERD Continue omeprazole DVT prophylaxis Lovenox Full code. I spent a total of 45 minutes coordinating, documenting and providing care for this patient excluding time spent in performance of separately billed services Admission and Anticipated Discharge Date Admission Date: November 03, 2024 Subjective Patient seen and examined Reports cough and SOB are improved Reports headache and myalgia No fevers or other complaints Physical Exam Constitutional: + well hydrated; no acute distress Eyes: PERRL, conjunctivae normal, anicteric sclerae Respiratory: normal respiratory effort, lungs clear to auscultation Cardiovascular: Rate/Rhythm: regular rate and regular rhythm Gastrointestinal (Abdomen): normal bowel sounds, soft, nontender, no hepatosplenomegaly Musculoskeletal: no cyanosis or clubbing, extremities motor strength 5/5 Neurologic: PERRL, EOMI, accommodation nl, no face palsy, no dysarthria Psychiatric: A+Ox3, euthymic affect Results & Data Results & Data Vital Signs (Past 12 Hours) Vital Signs Temp Pulse Pulse Resp BP Pulse Ox O2 Del Method 11/08/24 08:00 Room Air 11/08/24 07:49 36.7 C 94 H 20 148/87 H 91 Room Air 11/08/24 07:22 78 16 94 Room Air 11/08/24 04:36 36.6 C 94 H 94 H 16 144/88 H 94 Room Air 11/08/24 03:00 11/08/24 00:13 36.7 C 92 H 16 132/82 94 Room Air O2 Del Method 11/08/24 08:00 11/08/24 07:49 11/08/24 07:22 11/08/24 04:36 11/08/24 03:00 Room Air 11/08/24 00:13 Laboratory Results Abnormal lab results 11/08/24 Range/Units 09:53 WBC 21.52 H (4.8-10.8) K/ul RBC 3.27 L (4.20-5.40) M/uL Hgb 10.1 L (12.0-16.0) g/dl Hct 27.7 L (37.0-47.0) % MCHC 36.5 H (32.0-36.0) g/dL Sodium 134 L (136-145) mmol/L Potassium 3.4 L (3.5-5.1) mmol/L BUN 4 L (6-23) mg/dl Creatinine 0.50 L (0.6-1.2) mg/dl BUN/Creatinine Ratio 8.0 L (10-20) Glucose 114 H (70-99(Fasting)) mg/dl Calcium 8.1 L (8.6-10.3) mg/dl
[2024-11-08 10:27] LABS: Calcium 8.1 mg/dl (8.6-10.3); Creatinine Clr Calc Pharmacy 117.7 ml/min; Potassium 3.4 mmol/L (3.5-5.1)
[2024-11-08 10:42] LABS: Basophils # (auto) 0.09 K/uL (0.00-0.20); Basophils % (auto) 0.4 %; Eosinophils % (auto) 0.9 %; Immature Granulocytes % (auto) 5.6 %; Lymphocytes # (auto) 3.44 K/uL (1.20-3.40); Monocytes % (auto) 8.8 %; Neutrophils # (auto) 14.69 K/uL (1.40-6.50); Neutrophils % (auto) 68.3 %; Toxic Granulation 1+
--- NOTE | 2024-11-08 10:42 | Pulmonology Progress Note ---
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 CT of the neck showed no evidence of septic thrombophlebitis. Tonsillitis was noted without abscess or phlegmon. Antibiotics adjusted per ID. White blood cell count is improving and fever curve has resolved. Recommendations: 1. Presumptive lung abscess. Cultures negative to date. Chest x-ray relatively stable compared to day prior. No evidence of large effusion. Recommend repeating a chest x-ray in 2 to 3 weeks or sooner unless symptoms change. Recommend a CT chest in about 4 to 6 weeks. 2. White blood cell count continues to improve on current antibiotic regimen. Clinically she is improved as well. Agree with antibiotic regimen as outlined by infectious disease. 3. Continue oxygen titrated to keep saturations at or above 88%. She is now off oxygen 4. I would encourage her to ambulate around the hallways today and consider discharge later this afternoon or tomorrow depending on patient's clinical symptoms. Will defer disposition to the primary team. Will continue to follow with you. Feel free to contact us with questions or concerns Admission and Anticipated Discharge Date Admission Date: November 03, 2024 Subjective Patient with some mild fatigue and occasional shortness of breath with exertion. Occasional cough. Subjective fever, but no documented fever overnight. White blood cell count has significantly improved to 21,500. Patient currently saturating in the low 90s on room air. Review of Systems Review of Systems: All systems reviewed & are unremarkable except as noted in HPI & below Physical Exam Constitutional: WD/WN, vitals as above Neck: trachea midline, no thyromegaly Respiratory: no respiratory distress, no labored breathing, no cough and not tachypneic Auscultation: + diminished lung sounds and + crackles Cardiovascular: RRR, no murmur, no edema Gastrointestinal (Abdomen): normal bowel sounds, soft, nontender, no hepatosplenomegaly Musculoskeletal: Extremities: extremities normal to inspection Skin: no rashes, warm and dry Lymphatic: no cervical lymphadenopathy Results & Data Results & Data Vital Signs (Past 12 Hours) Vital Signs Temp Pulse Pulse Pulse Resp BP Pulse Ox 11/08/24 08:00 11/08/24 07:49 36.7 C 94 H 20 148/87 H 91 11/08/24 07:22 78 16 94 11/08/24 07:15 88 11/08/24 04:36 36.6 C 94 H 94 H 16 144/88 H 94 11/08/24 03:00 11/08/24 00:13 36.7 C 92 H 16 132/82 94 O2 Del Method O2 Del Method 11/08/24 08:00 Room Air 11/08/24 07:49 Room Air 11/08/24 07:22 Room Air 11/08/24 07:15 11/08/24 04:36 Room Air 11/08/24 03:00 Room Air 11/08/24 00:13 Room Air PG Care Time/CCT Total # of Minutes Spent Total Time Spent with Patient: Total time spent is greater than 50% in coordination of care (as documented) at patient's floor/unit and/or counseling patient: Coding Level of Care Code 11173 SUB INP/OBS CARE 2/35MIN Diagnoses Acute streptococcal pharyngitis J02.0 Cavitary lesion of lung J98.4 Sepsis A41.9
[2024-11-08] MEDS: POTASSIUM CHLORIDE CRTAB 20 MEQ TABCR PO SCH (11:10)
[2024-11-09 09:10] LABS: Hemoglobin 10.3 g/dl (12.0-16.0); Mean Corpuscular Hemoglobin 29.9 pg (25.0-34.0); Mean Corpuscular Hgb Conc 34.3 g/dL (32.0-36.0); Mean Platelet Volume 9.8 fL (9.4-12.4); Platelet Count 350 K/uL (130-400); RDW Coefficient of Variation 14.6 % (11.5-14.5); RDW Standard Deviation 46.1 fL (36.4-46.3); Red Blood Count 3.45 M/uL (4.20-5.40); White Blood Count 20.66 K/ul (4.8-10.8)
[2024-11-09 09:26] LABS: Calcium 8.2 mg/dl (8.6-10.3); Potassium 3.6 mmol/L (3.5-5.1)
[2024-11-09 09:32] LABS: BUN Creatinine Ratio 7.8 (10-20); Basophils % (auto) 0.5 %; Eosinophils # (auto) 0.31 K/uL (0.00-0.50); Eosinophils % (auto) 1.5 %; Hypersegmented Neutrophils 1+; Immature Granulocytes # (auto) 1.37 K/uL (0.01-0.20); Immature Granulocytes % (auto) 6.6 %; Lymphocytes # (auto) 3.04 K/uL (1.20-3.40); Lymphocytes % (auto) 14.7 %; Monocytes # (auto) 1.51 K/uL (0.11-0.59); Monocytes % (auto) 7.3 %; Neutrophils # (auto) 14.33 K/uL (1.40-6.50); Neutrophils % (auto) 69.4 %; Polychromasia 1+; Target Cells 1+
--- NOTE | 2024-11-09 09:39 | Discharge Summary ---
Date of Service November 09, 2024 Admission HPI Per Admitting Provider 54-year-old female with past medical history significant for allergies, GERD presents with fever, sore throat and runny nose and near syncope. Patient states she has cough for last month and attributes it from allergies. Since last Friday she started having sore throat. And since Friday she was having fevers. Having bodyaches. She is taking Tylenol and ibuprofen at home. 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 It happened again. And when she stood up and checked her blood pressure systolic blood pressure was in 60s. She checked her blood pressures sitting and systolic blood pressure was in 80s. Patient has had a history of vasovagal episodes. She came to the ER. And in ER she was tachycardic. Blood pressure is okay. Currently afebrile. WBC 35. Magnesium 1.1. Total bili 1.3. ALT 91. Alkaline phos 117. Respiratory bio fire came back positive for coronavirus 229 E and also was group B strep positive. Says when she had episode of near syncope she felt tunnel vision. Has some fullness in the ears. Has runny nose. Denies any chest pain. Feels soreness in the lungs. Denies shortness of breath. Had 3 episodes of vomiting since today evening. Denies abdominal pain. No diarrhea. Micturating okay. Denies any rash. Past medical history. As mentioned above Past surgical history. . Tubal ligation. [place] tooth surgery. LASEK surgery. Social history. Used to smoke 0.5 pack a day for last 6 years. Says quit smoking a month ago. Drinks alcohol on the weekends. Family history. Father has CHF. CABG. CVA. Mother has hypertension and hyperlipidemia. Admission Exam Per Admitting Provider General- Not in acute distress Head- atraumatic Eyes- PERRL. ENT- erythema in pharynx region Neck- supple, no JVD. Lungs- clear to auscultation no wheezing or crackles Heart- regular rhythm; tachycardia, no murmur, no gallop. Abdomen- normal bowel sounds, soft, nontender, no distension Extremities- no pretibial edema, no erythema seen Neuro- alert, oriented ; PERRL, no facial palsy; no dysarthria; moves ex tremities Principal Diagnosis Sepsis Acute streptococcal pharyngitis Cavitary lesion of the lung Discharge Exam Constitutional + well hydrated; no acute distress Eyes PERRL, conjunctivae normal, anicteric sclerae Respiratory normal respiratory effort, lungs clear to auscultation Cardiovascular Rate/Rhythm: regular rate and regular rhythm Gastrointestinal (Abdomen) normal bowel sounds, soft, nontender, no hepatosplenomegaly Musculoskeletal no cyanosis or clubbing, extremities motor strength 5/5 Neurologic PERRL, EOMI, accommodation nl, no face palsy, no dysarthria Psychiatric A+Ox3, euthymic affect Discharge Data Allergies Allergy/AdvReac Type Severity Reaction Status Date / Time No Known Allergies Allergy Verified 11/03/24 22:04 Consultations 11/03/24 22:52 ED Decision to Admit Stat 11/04/24 08:00 Consult Pulmonology Routine 11/04/24 14:10 Consult Infectious Diseases Routine Ordered Studies 11/04/24 03:57 CT angio chest PE protocol Urgent 11/04/24 10:34 CT neck soft tissues [CT soft tissue neck wo/w con] Routine Hospital Course (1) Sepsis: 54-year-old female with past medical history significant for allergies, GERD presents with fever, sore throat and runny nose and near syncope. 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 Lab notable for WBC 35. Magnesium 1.1. Total bili 1.3. ALT 91. Alkaline phos 117. Respiratory bio fire came back positive for coronavirus 229 E and group B strep positive. Sepsis Streptococcal pharyngitis Cavitary lung lesion, possible lung abscess Chest x-ray shows cavitary lesion in the left midline. Possible pneumonia versus mass lesions CT chest noted multiple area of consolidation with few showing internal cavitation CT neck noted mild tonsilitis. No peritonsilar abscess, mild cervical lymphadenopathy, Acute paranasal sinusitis Leukocytosis peaked at 36K, improved to 20K today Blood culture negative so far Patient was started on IV antibiotics She was evaluated by Pulm and ID Symptoms improved and she was weaned off oxygen She was discharged on po linezolid 600mg BID till 11/14/24 and Augmentin 875 TID on dc till 11/30/24 PCP to check CXR in 2-[address] chest in 4-6 weeks Near syncope Likely from sepsis and tachycardia Troponin was normal Echo reviewed. Unremarkable Mild transaminitis On admission, Total bilirubin 1.3, AST 39, ALT 91, Alkaline phos is 179 Likely due to sepsis LFT improved GERD Continue omeprazole Patient advised to hold off her prn metalaxone until after completion of linezolid Total Time Total Time Spent Total Time Spent (In Minutes): 40 Total Time Includes: Examination of the Patient, Discharge Planning and Medication Reconciliation Discharge Plan Discharge Items Patient Disposition: Home - Self-Care Reason For Visit: SEPSIS, NEAR SYNCOPE Discharge Diagnosis: Sepsis Acute streptococcal pharyngitis Cavitary lesion of the lung Activity: Resume your previous activity Non-emergency contact: Primary Care Provider Call non-emergency contact if: you have any medication questions and your symptoms worsen Follow-up/Referrals: Allen Salas MD [Primary Care Provider] - 11/16/24 12:00 pm Diet: Regular Addtl Attending Provider Instructions: Mrs Dickerson You were hospitalized and managed for the above listed diagnoses. You are being discharged on Linezolid 600mg twice a day until 11/14/24 and Augmentin 875mg three times a day until 11/30/2024. Please stop your metaxolone while on linezolid Please ensure follow up with your Primary Doctor who will arrange Chest XRay in 2-[address] Chest in 4-6 weeks to reassess. It was a pleasure taking care of you Pending Studies at Discharge: No Stand-Alone Forms: [facility] MOMENTFACE SRO, Smoking Cessation Medications and DC Order Prescriptions: New linezolid 600 mg Tablet 600 mg PO BID Qty: 11 0RF amoxicillin-pot clavulanate 875-125 mg tablet 1 tab PO TID Qty: 65 0RF Continued montelukast 10 mg Tablet 10 mg PO PM fluticasone propionate [Flonase Allergy Relief] 50 mcg/actuation [place],Suspension 2 spray INTRANASAL DAILY PRN (Reason: Congestion) Rx Instructions: administer into each nostril loratadine [Claritin] 10 mg Tablet 10 mg PO QPM omeprazole 20 mg Tablet,Delayed Release (Dr/Ec) 20 mg PO QPM Held metaxalone 800 mg Tablet 800 mg PO TID PRN (Reason: Muscle Spasm) Hold Instructions: Resume on 11/15/24. Discharge Orders: Discharge Order (Routine); Ordered 11/09/24 Ordered By: Soumya Grimes Admission Data Admit Date/Time: 11/03/24 23:54 Attending Provider: Soumya Grimes I. Admit Provider: Favian Victor Primary Care Provider: Allen Salas Other Providers: Favian Victor; Fariba Shaffer Carlos M.; Marcelina Patiño; Pete Sauceda I.; Joaquín See II; Macy Jennings; Danny Amezquita; Frederick Mcfadden; Pelon Garcia; Cherelle Collins; Igor Bates Other Interventions: Discharge Summary Assessment (RN) Last Done: 11/09/24 09:59
== END 2024-11-09 12:03 | disposition home or self-care (01) | DRG 871 ==
LOC: ED 20:59 → 2S 11-04 00:47